=== PATIENT | male | born 1980 | race Caucasian/White ===

== ENCOUNTER 2020-05-03 16:12 | Inpatient (IN) | payer MEDICAID, OTHER ==
--- NOTE | 2020-05-03 16:38 | ED ---
General Adult HPI - General Source: patient, EMS, RN notes reviewed Mode of arrival: EMS Limitations: no limitations <Florentino Arcos - Last Filed: 05/03/20 16:36> <Don Servin - Last Filed: 05/04/20 02:09> - General Chief complaint: Psychiatric Symptoms Stated complaint: Mental Health Room 14 Time Seen by Provider: 05/03/20 16:24 - History of Present Illness Initial comments: Patient is a pleasant 39-year-old male presenting to the emergency department with depression and suicidal thoughts. Patient did have recent change in medications however symptoms certainly getting worse in the past couple of days. Patient has multiple stressors. Patient does have thoughts of cutting his left wrist. No homicidal thoughts. Patient was drinking alcohol today. No new physical complaints. Patient sometimes shapes when he closes his eyes otherwise no hallucinations. (Florentino Arcos) - Related Data Allergies Allergy/AdvReac Type Severity Reaction Status Date / Time No Known Allergies Allergy Verified 05/03/20 17:33 Review of Systems ROS Other: All systems not noted in ROS Statement are negative. Constitutional: Denies: fever Eyes: Denies: eye pain ENT: Denies: ear pain Respiratory: Denies: cough Cardiovascular: Denies: chest pain Endocrine: Denies: fatigue Gastrointestinal: Denies: abdominal pain Genitourinary: Denies: dysuria Musculoskeletal: Denies: back pain Skin: Denies: rash Psychiatric: Reports: depression, suicidal thoughts <Florentino Arcos - Last Filed: 05/03/20 16:36> ROS Other: All systems not noted in ROS Statement are negative. <Don Servin - Last Filed: 05/04/20 02:09> ROS Statement: Those systems with pertinent positive or pertinent negative responses have been documented in the HPI. Past Medical History Past Medical History: No Reported History History of Any Multi-Drug Resistant Organisms: None Reported Past Surgical History: No Surgical Hx Reported Past Psychological History: Depression Smoking Status: Vaper Past Alcohol Use History: Abuse Past Drug Use History: None Reported <Florentino Arcos - Last Filed: 05/03/20 16:36> General Exam Limitations: no limitations General appearance: alert, in no apparent distress Head exam: Present: normocephalic Eye exam: Present: normal appearance, EOMI, nystagmus Neck exam: Present: normal inspection Respiratory exam: Present: normal lung sounds bilaterally Cardiovascular Exam: Present: regular rate, normal rhythm GI/Abdominal exam: Present: soft. Absent: tenderness Extremities exam: Present: normal inspection Neurological exam: Present: alert Psychiatric exam: Present: depressed, suicidal ideation Skin exam: Present: normal color <Florentino Arcos - Last Filed: 05/03/20 16:36> Course Vital Signs 05/03/20 05/03/20 16:20 18:49 Temperature 97.9 F Pulse Rate 90 86 Respiratory 16 16 Rate Blood Pressure 120/92 140/91 O2 Sat by Pulse 95 97 Oximetry Medical Decision Making - Lab Data Lab Results 05/03/20 Range/Units 16:46 Urine Opiates Screen Not Detected (NotDetected) Ur Oxycodone Screen Not Detected (NotDetected) Urine Methadone Screen Not Detected (NotDetected) Ur Propoxyphene Screen Not Detected (NotDetected) Ur Barbiturates Screen Not Detected (NotDetected) U Tricyclic Antidepress Not Detected (NotDetected) Ur Phencyclidine Scrn Not Detected (NotDetected) Ur Amphetamines Screen Not Detected (NotDetected) U Methamphetamines Scrn Not Detected (NotDetected) U Benzodiazepines Scrn Detected H (NotDetected) Urine Cocaine Screen Not Detected (NotDetected) U Marijuana (THC) Screen Not Detected (NotDetected) Disposition <Florentino Arcos - Last Filed: 05/03/20 16:36> Is patient prescribed a controlled substance at d/c from ED?: No <Don Servin - Last Filed: 05/04/20 02:09> Clinical Impression: Mood disorder Disposition: ADMITTED IP TO THIS HOSP Condition: Fair
[2020-05-03 17:11] LABS: Amphetamine Screen,Urine Not Detected (NotDetected); Barbiturate Screen,Urine Not Detected (NotDetected); Benzodiazepines Screen,Urine Detected (NotDetected); Cocaine Screen,Urine Not Detected (NotDetected); Methadone Screen, Urine Not Detected (NotDetected); Opiate Screen,Urine Not Detected (NotDetected); Oxycodone Screen, Urine Not Detected (NotDetected); Phencyclidine Screen,Urine Not Detected (NotDetected); Tricyclic Antidepressant,Urine Not Detected (NotDetected); Urn Cannabinoid Scrn Not Detected (NotDetected)
[2020-05-03] MEDS ORDERED: LORazepam 2 MG/ML INJ IM STA (17:55)
[2020-05-03] MEDS ORDERED: LORazepam 2 MG/ML INJ IV STA (17:56)
[2020-05-04] MEDS ORDERED: MAGNESIUM HYDROXIDE 2,400 MG/10 ML CUP PO PRN (01:57)
[2020-05-04] MEDS ORDERED: MAG HYDROX/AL HYDROX/SIMETH 30 ML CUP PO PRN (01:57)
[2020-05-04] MEDS ORDERED: ZIPRASIDONE 20 MG VIAL IM PRN (01:57)
[2020-05-04] MEDS ORDERED: ACETAMINOPHEN TAB 325 MG TAB PO PRN (01:57)
[2020-05-04] MEDS ORDERED: haloperidoL 5 MG TAB PO SCH (02:03)
[2020-05-04 02:14] LABS: Appearance,Urine Clear (Clear); Bilirubin,Urine Negative (Negative); Blood,Urine Negative (Negative); Color,Urine Colorless; Glucose,Urine (UA) Negative (Negative); Ketones,Urine Negative (Negative); Leukocyte Esterase,Urine Negative (Negative); Nitrite,Urine Negative (Negative); Protein,Urine Negative (Negative); Specific Gravity,Urine 1.004 (1.001-1.035); Urobilinogen,Urine <2.0 mg/dL (<2.0)
[2020-05-04] MEDS: MIRTAZAPINE 15 MG TAB PO SCH ×2 (02:53→20:32)
[2020-05-04] MEDS: LORazepam 1 MG TAB PO SCH ×4 (02:53→21:16)
--- NOTE | 2020-05-04 05:56 | P.PN ---
Progress Note - Text Progress Note Date: 05/04/20 patient is sleeping at this time , unable to evaluate
[2020-05-04] MEDS: ESCITALOPRAM 20 MG TAB PO SCH (09:31)
[2020-05-04] MEDS: cloNIDine HCL 0.2 MG TAB PO SCH (09:31)
--- NOTE | 2020-05-04 11:20 | P.HP ---
Psychiatric H&P - . H&P Date: 05/04/20 History & Physical: Allergies Allergy/AdvReac Type Severity Reaction Status Date / Time No Known Allergies Allergy Verified 05/04/20 03:31 Vital Signs Temp 98.3 F 05/04/20 03:13 Pulse 74 05/04/20 03:13 Resp 20 05/04/20 03:13 BP 132/87 05/04/20 03:13 Pulse Ox 97 05/03/20 18:49 Intake & Output 05/03/20 05/04/20 05/04/20 18:59 06:59 18:59 Weight 90.718 kg 87.543 kg Laboratory Last Values Urine Color Colorless 05/03/20 16:46 Urine Appearance Clear (Clear) 05/03/20 16:46 Urine pH 6.0 (5.0-8.0) 05/03/20 16:46 Ur Specific [place] 1.004 (1.001-1.035) 05/03/20 16:46 Urine Protein Negative (Negative) 05/03/20 16:46 Urine Glucose (UA) Negative (Negative) 05/03/20 16:46 Urine Ketones Negative (Negative) 05/03/20 16:46 Urine Blood Negative (Negative) 05/03/20 16:46 Urine Nitrite Negative (Negative) 05/03/20 16:46 Urine Bilirubin Negative (Negative) 05/03/20 16:46 Urine Urobilinogen <2.0 mg/dL (<2.0) 05/03/20 16:46 Ur Leukocyte Esterase Negative (Negative) 05/03/20 16:46 Urine Opiates Screen Not Detected (NotDetected) 05/03/20 16:46 Ur Oxycodone Screen Not Detected (NotDetected) 05/03/20 16:46 Urine Methadone Screen Not Detected (NotDetected) 05/03/20 16:46 Ur Propoxyphene Screen Not Detected (NotDetected) 05/03/20 16:46 Ur Barbiturates Screen Not Detected (NotDetected) 05/03/20 16:46 U Tricyclic Antidepress Not Detected (NotDetected) 05/03/20 16:46 Ur Phencyclidine Scrn Not Detected (NotDetected) 05/03/20 16:46 Ur Amphetamines Screen Not Detected (NotDetected) 05/03/20 16:46 U Methamphetamines Scrn Not Detected (NotDetected) 05/03/20 16:46 U Benzodiazepines Scrn Detected (NotDetected) H 05/03/20 16:46 Urine Cocaine Screen Not Detected (NotDetected) 05/03/20 16:46 U Marijuana (THC) Screen Not Detected (NotDetected) 05/03/20 16:46 05/04/20 11:11 IDENTIFYING DATA: Patient is a 39 year old single, unemployed, male with significant history of hypertension, depression, and anxiety admitted for worsening depression in the context of the medication adjustment. HPI: Patient presented to the hospital on 05/03/2020 for worsening depression and suicidal thoughts in the context of a medication adjustment. Patient reports that he had his psychotropic medications adjusted on 04/27/2020 and he "felt like my medications weren't working." He reports that he has been feeling increasingly depressed as if he was not taking any medications. He reports that he did not want to get out of bed, did not want to leave the house, has been very anxious, and has been having a low mood. He also reported a desire to cut his left wrist. He reports no prior attempts at suicide. He also endorses that there have been increased stressors at home, in particular financial stressors. He reports that his medications were adjusted by his outpatient provider at [facility] who discontinued his Seroquel and Abilify and started him on Haldol instead. He was also previously prescribed trintellix and was switched to Lexapro and Remeron. In regards to bipolar symptoms, the patient is not endorsing any increased goal-directed behavior, increased energy, impulsivity, or grandiosity. He reports no auditory or visual hallucinations. He denies any significant history of trauma. He does endorse significant alcohol use. He reports that when he is feeling increasingly depressed, he is drinking up to a pint of hard liquor per day. He reports that when he is on his medications and stable, he would engage in alcohol use once a week up to a pint of liquor. He reports sleeping. He denies any marijuana use or any other drug use. He is also prescribed Ativan 1 mg 3 times daily. PAST PSYCHIATRIC HISTORY: Patient states that he first sought psychiatric help 20 years ago. He reports prior trials with Abilify, Trintellix, Seroquel. He reports that this is his fifth inpatient psychiatric hospitalization. He reports 2 prior hospitalizations for suicidal thoughts and 2 prior psychiatric hospitals in patient's for medication adjustments. He reports he was last inpatient at [facility] 1.5 months ago for suicidal ideation. He states that the stay was for 13 days. He is currently open with [facility] for outpatient psychiatric follow-up. Patient denies any history of suicide attempts in the past. PMH: Hypertension ALLERGIES: NKDA CHEMICAL DEPENDENCY HISTORY: as per HPI FAMILY PSYCHIATRIC/SUBSTANCE USE HISTORY: He reports that his mother is schizophrenic, his sister is bipolar, and that he has a grand uncle and aunt on his mother's side that completed suicide. He reports that his father's side has significant alcohol use disorder. SOCIAL HISTORY: Patient was born and raised in [place], [place]. He graduated with a degree in psychology. He currently lives in [place]. He lives by himself. He moved to the [place] area this past January. He currently has no source of income and is unemployed. Never . No children. MENTAL STATUS EXAM: General Appearance: Patient appears to be stated age is alert, directable, and attempts to cooperate. Patient appears to have good hygiene and grooming. Behavior: Patient is seated without any agitated behavior. Psychomotor activity is normal. Speech: Patient's speech is fluent and nonpressured. Mood/Affect: Patient reports their mood is depressed, affect is congruent and constricted. Suicidality/Homicidality: Patient denies having any homicidal ideation intent or plan. Denies any suicidal ideations intent or plan Perceptions: Patient denies any visual hallucinations and denies any auditory h allucinations Though content/process: There is no evidence of any delusional thought content and thought process is linear and goal-directed. Memory and concentration: AOX3, grossly intact for the purposes of this session. Can spell "WORLD" backwards Judgment and insight: Fair STRENGTHS/WEAKNESSES: strength is that patient is resilient. Weakness is that patient engages in significant alcohol use INTELLECT: average IMPRESSIONS: Major Depressive disorder, recurrent, moderate Anxiety Disorder, unspecified Alcohol Use Disorder PLAN: -Patient is admitted under voluntary status to MHU for stabilization of psychiatric symptoms and safety. Patient signed adult voluntary form and medication consent and is placed in patient's chart. -Medications : We will continue the patient's home medications. We will change Haldol to Zyprexa as Zyprexa is a second generation antipsychotic that has activity on the serotonin receptor. -Ativan and Geodon PRN for agitation/aggression -Patient was counselled on substance abuse and desired to cut back on use -Patient was informed of the risks, benefits and side effects of the medication and patient verbally consented to taking the medications. Patient signed med consent form and was placed in chart. -Internal Medicine consult to perform medical evaluation and physical. -NRT - nicotine patch -SW on board for discharge planning. Encourage patient to participate in groups to work on coping skills.
[2020-05-04 11:34] VITALS: RESP 16
[2020-05-04] MEDS ORDERED: OLANZapine 5 MG TAB PO SCH (21:00)
[2020-05-05 03:47] VITALS: TEMP 97.8
[2020-05-05 07:31] LABS: Basophils % (A) 1 %; Eosinophils # (A) 0.2 k/uL (0-0.7); Eosinophils % (A) 2 %; HCT 48.6 % (39.0-53.0); HGB 16.1 gm/dL (13.0-17.5); Lymphocytes # (A) 1.6 k/uL (1.0-4.8); Lymphocytes % (A) 22 %; MCH 32.5 pg (25.0-35.0); MCHC 33.1 g/dL (31.0-37.0); MCV 98.3 fL (80.0-100.0); Mean Platelet Volume 6.8; Monocytes # (A) 0.4 k/uL (0-1.0); Monocytes % (A) 5 %; Neutrophils # (A) 5.1 k/uL (1.3-7.7); Neutrophils % (A) 69 %; Platelet Count 202 k/uL (150-450); RBC 4.94 m/uL (4.30-5.90); RDW 13.6 % (11.5-15.5); WBC 7.4 k/uL (3.8-10.6)
[2020-05-05 07:50] LABS: Albumin 4.3 g/dL (3.5-5.0); Calcium 9.5 mg/dL (8.4-10.2); Potassium 4.3 mmol/L (3.5-5.1); Total Protein 7.6 g/dL (6.3-8.2)
[2020-05-05] MEDS: ESCITALOPRAM 20 MG TAB PO SCH (08:55)
[2020-05-05] MEDS: LORazepam 1 MG TAB PO SCH (08:55)
[2020-05-05] MEDS: cloNIDine HCL 0.2 MG TAB PO SCH (08:56)
--- NOTE | 2020-05-05 10:22 | P.DS ---
Providers Date of admission: 05/04/20 01:51 Expected date of discharge: 05/05/20 Attending physician: Gil Pederson MD Consults: 05/04/20 01:57 Consult Physician Routine Consulting Provider: Rupinder Schaefer Consult Reason/Comments: H&P for mental health admission Do you want consulting provider notified?: Yes Primary care physician: Stated None - Discharge Diagnosis(es) (1) Major depressive disorder, recurrent, moderate Current Visit: Yes Status: Acute Priority: High (2) Anxiety disorder, unspecified Current Visit: Yes Status: Acute Priority: Medium (3) Alcohol use disorder Current Visit: Yes Status: Chronic Priority: Medium Hospital Course: Admission HPI: Patient is a 39 year old single, unemployed, male with significant history of hypertension, depression, and anxiety admitted for worsening depression in the context of the medication adjustment. Patient presented to the hospital on 05/03/2020 for worsening depression and suicidal thoughts in the context of a medication adjustment. Patient reports that he had his psychot ropic medications adjusted on 04/27/2020 and he "felt like my medications weren't working." He reports that he has been feeling increasingly depressed as if he was not taking any medications. He reports that he did not want to get out of bed, did not want to leave the house, has been very anxious, and has been having a low mood. He also reported a desire to cut his left wrist. He reports no prior attempts at suicide. He also endorses that there have been increased stressors at home, in particular financial stressors. He reports that his medications were adjusted by his outpatient provider at [facility] who discontinued his Seroquel and Abilify and started him on Haldol instead. He was also previously prescribed trintellix and was switched to Lexapro and Remeron. In regards to bipolar symptoms, the patient is not endorsing any increased goal-directed behavior, increased energy, impulsivity, or grandiosity. He reports no auditory or visual hallucinations. He denies any significant history of trauma. He does endorse significant alcohol use. He reports that when he is feeling increasingly depressed, he is drinking up to a pint of hard liquor per day. He reports that when he is on his medications and stable, he would engage in alcohol use once a week up to a pint of liquor. He reports sleeping. He denies any marijuana use or any other drug use. He is also prescribed Ativan 1 mg 3 times daily. Hospital course: Upon admission to the unit patient was initially calm and pleasant. Patient wasr directable and agreeable to commence treatment. Patient got along well with other patients on the unit and followed unit protocol. Patient was compliant with the medications and denied any side effects throughout hospital course. Patient was started on his home medications but his Haldol was switched to Zyprexa as Zyprexa has action on the serotonin receptor so as to augment his antidepressant medication versus just Haldol acting on dopamine alone. Patient spoke of his stressors and engaged in therapy both group and individual. Patient was also seen by medical team for history and physical exam. Patient initially reported that he felt like the medications are not doing anything when he first brought himself to the hospital. During the initial psychiatric evaluation, the patient expressed that he was starting to feel better. The day following the initial psychiatric evaluation, the patient expressed that he felt like he was back to his normal self. Throughout the course of the hospitalization patient gradually improved with regards to mood and sleep and became future oriented with improved insight and judgment. On the day of discharge patient denied any suicidal or homicidal ideations intent or plan denied any auditory or visual hallucinations. Patient endorsed wanting to live for his health and his goals. He has plans to run multiple errands and obtain a part-time job. The patient denied any access to guns or weapons. Patient denied any paranoia and did not endorse any delusions. Patient does have a significant history of substance abuse however was counseled on abstaining from all substances including alcohol and marijuana. Patient was offered however declined inpatient substance-abuse rehab. Patient was also counseled on the medications and need for regular compliance and was encouraged to follow-up with their outpatient appointment for mental health and also for primary care. Prior to discharge a family meeting will be arranged by protective services social worker to answer any questions and ensure safety upon discharge. Mental status exam: General Appearance: Patient appears to be stated age is alert, pleasant, and cooperative. Patient is in no acute distress and has fair hygiene and grooming Behavior: Patient is calmly seated without any agitated behavior. Speech: Patient's speech is fluent and nonpressured. Mood/Affect: Patient reports their mood is "much better", affect is congruent and euthymic. Suicidality/Homicidality: Patient denies having any suicidal or homicidal ideation intent or plan. Perceptions: Patient denies any auditory or visual hallucinations. Though content/process: There is no evidence of any delusional thought content and thought process is linear and goal-directed. more future oriented Memory and concentration: AOX3, grossly intact for the purposes of this session. Can spell "WORLD" backwards correctly. Judgment and insight: Improved with guarded prognosis Impression: Major Depressive disorder, recurrent, moderate Anxiety Disorder, unspecified Alcohol Use Disorder Unspecified personality disorder Plan: -Continue with discharge today as patient has improved and stabilized psychiatrically and is not currently an imminent threat to himself and/or others. Patient will remain at chronically elevated risk for harm to self and/or others due to his alcohol abuse. -Continue medications: Lexapro 20 mg by mouth daily Ativan 1 mg by mouth 3 times a day Remeron 15 mg by mouth at bedtime Zyprexa 5 mg by mouth at bedtime Catapres 0.2 mg by mouth daily for blood pressure -Patient was counseled on the need for medication compliance and appropriate follow-up at mental health and also primary care for medical issues. Patient verbalized understanding and agreed. -Social work to arrange for and conduct family meeting to ensure safety upon discharge and answer any questions/concerns. Social work also to arrange for patients follow up appointments with [facility] for psychiatric care along with follow up with primary care provider. -Patient counseled on abstaining from recreational drugs and marijuana and alcohol. Was informed/educated on the adverse effects on their physical and mental health. Patient verbally agreed and understood. Patient was offered substance abuse treatment however declined at this time. -Patient was instructed to return to the hospital or seek immediate medical care if their psychiatric or medical symptoms do worsen or reoccur. -Psychoeducation and supportive therapy provided to patient. Risks and benefits of pharmacological treatment versus the risks and benefits of nontreatment weight and discussed. Informed consent discussion held. Common side effects of psychotropics discussed such as, but not limited to headache, GI disturbance, sexual dysfunction, movement disorders, sedation, and orthostatic hypotension. Life threatening and blackbox warnings of prescribed medications also discussed. Potential risks of operating a vehicle or heavy machinery discussed with patient at length. Advised on importance of compliance and a reliable and responsible manner. Patient advised to review FDA consumer labeling of all medications prior to taking. Patient verbalized understanding of potential risks, and agrees with current treatment plan. Patient advised to medically contact physician/emergency personnel if any acute changes in condition occur. Vital Signs Temp 97.8 F 05/05/20 03:46 Pulse 81 05/05/20 03:46 Resp 16 05/05/20 03:46 BP 137/86 05/05/20 03:46 Pulse Ox 97 05/03/20 18:49 Laboratory Results WBC 7.4 k/uL (3.8-10.6) 05/05/20 07:04 RBC 4.94 m/uL (4.30-5.90) 05/05/20 07:04 Hgb 16.1 gm/dL (13.0-17.5) 05/05/20 07:04 Hct 48.6 % (39.0-53.0) 05/05/20 07:04 MCV 98.3 fL (80.0-100.0) 05/05/20 07:04 MCH 32.5 pg (25.0-35.0) 05/05/20 07:04 MCHC 33.1 g/dL (31.0-37.0) 05/05/20 07:04 RDW 13.6 % (11.5-15.5) 05/05/20 07:04 Plt Count 202 k/uL (150-450) 05/05/20 07:04 Neutrophils % 69 % 05/05/20 07:04 Lymphocytes % 22 % 05/05/20 07:04 Monocytes % 5 % 05/05/20 07:04 Eosinophils % 2 % 05/05/20 07:04 Basophils % 1 % 05/05/20 07:04 Neutrophils # 5.1 k/uL (1.3-7.7) 05/05/20 07:04 Lymphocytes # 1.6 k/uL (1.0-4.8) 05/05/20 07:04 Monocytes # 0.4 k/uL (0-1.0) 05/05/20 07:04 Eosinophils # 0.2 k/uL (0-0.7) 05/05/20 07:04 Basophils # 0.0 k/uL (0-0.2) 05/05/20 07:04 Sodium 137 mmol/L (137-145) 05/05/20 07:04 Potassium 4.3 mmol/L (3.5-5.1) 05/05/20 07:04 Chloride 102 mmol/L (98-107) 05/05/20 07:04 Carbon Dioxide 26 mmol/L (22-30) 05/05/20 07:04 Anion Gap 9 mmol/L 05/05/20 07:04 BUN 16 mg/dL (9-20) 05/05/20 07:04 Creatinine 1.20 mg/dL (0.66-1.25) 05/05/20 07:04 Est GFR (CKD-EPI)AfAm 87 (>60 ml/min/1.73 sqM) 05/05/20 07:04 Est GFR (CKD-EPI)NonAf 75 (>60 ml/min/1.73 sqM) 05/05/20 07:04 Glucose 101 mg/dL (74-99) H 05/05/20 07:04 Calcium 9.5 mg/dL (8.4-10.2) 05/05/20 07:04 Total Bilirubin 1.0 mg/dL (0.2-1.3) 05/05/20 07:04 AST 27 U/L (17-59) 05/05/20 07:04 ALT 26 U/L (4-49) 05/05/20 07:04 Alkaline Phosphatase 66 U/L (38-126) 05/05/20 07:04 Total Protein 7.6 g/dL (6.3-8.2) 05/05/20 07:04 Albumin 4.3 g/dL (3.5-5.0) 05/05/20 07:04 Triglycerides 777 mg/dL (<150) H 05/05/20 07:04 Cholesterol 263 mg/dL (<200) H 05/05/20 07:04 LDL Cholesterol, Calc mg/dL (0-99) 05/05/20 07:04 HDL Cholesterol 55 mg/dL (40-60) 05/05/20 07:04 TSH 0.966 mIU/L (0.465-4.680) 05/05/20 07:04 Urine Color Colorless 05/03/20 16:46 Urine Appearance Clear (Clear) 05/03/20 16:46 Urine pH 6.0 (5.0-8.0) 05/03/20 16:46 Ur Specific [place] 1.004 (1.001-1.035) 05/03/20 16:46 Urine Protein Negative (Negative) 05/03/20 16:46 Urine Glucose (UA) Negative (Negative) 05/03/20 16:46 Urine Ketones Negative (Negative) 05/03/20 16:46 Urine Blood Negative (Negative) 05/03/20 16:46 Urine Nitrite Negative (Negative) 05/03/20 16:46 Urine Bilirubin Negative (Negative) 05/03/20 16:46 Urine Urobilinogen <2.0 mg/dL (<2.0) 05/03/20 16:46 Ur Leukocyte Esterase Negative (Negative) 05/03/20 16:46 Urine Opiates Screen Not Detected (NotDetected) 05/03/20 16:46 Ur Oxycodone Screen Not Detected (NotDetected) 05/03/20 16:46 Urine Methadone Screen Not Detected (NotDetected) 05/03/20 16:46 Ur Propoxyphene Screen Not Detected (NotDetected) 05/03/20 16:46 Ur Barbiturates Screen Not Detected (NotDetected) 05/03/20 16:46 U Tricyclic Antidepress Not Detected (NotDetected) 05/03/20 16:46 Ur Phencyclidine Scrn Not Detected (NotDetected) 05/03/20 16:46 Ur Amphetamines Screen Not Detected (NotDetected) 05/03/20 16:46 U Methamphetamines Scrn Not Detected (NotDetected) 05/03/20 16:46 U Benzodiazepines Scrn Detected (NotDetected) H 05/03/20 16:46 Urine Cocaine Screen Not Detected (NotDetected) 05/03/20 16:46 U Marijuana (THC) Screen Not Detected (NotDetected) 05/03/20 16:46 Allergies Allergy/AdvReac Type Severity Reaction Status Date / Time No Known Allergies Allergy Verified 05/04/20 03:31 Patient Condition at Discharge: Stable Plan - Discharge Summary Discharge Rx Participant: Yes New Discharge Prescriptions: New OLANZapine [ZyPREXA] 5 mg PO HS 30 Days tab Continue cloNIDine HCL [Catapres] 0.2 mg PO DAILY LORazepam [Ativan] 1 mg PO TID Escitalopram [Lexapro] 20 mg PO DAILY 30 Days tab Mirtazapine [Remeron] 15 mg PO HS 30 Days tab Discontinued haloperidoL [Haldol] 5 mg PO HS Discharge Medication List LORazepam [Ativan] 1 mg PO TID 05/03/20 [History] cloNIDine HCL [Catapres] 0.2 mg PO DAILY 05/03/20 [History] Escitalopram [Lexapro] 20 mg PO DAILY 30 Days tab 05/05/20 [Rx] Mirtazapine [Remeron] 15 mg PO HS 30 Days tab 05/05/20 [Rx] OLANZapine [ZyPREXA] 5 mg PO HS 30 Days tab 05/05/20 [Rx] Follow up Appointment(s)/Referral(s): [facility] [Outside] - 05/09/20 1:30 pm (05-09-20 @ 1:30 with MECHANIST Yen Gutierrez at [facility] office 05-09-20 @ 3:00 with Ramon Arcos and Temo Costello at [facility] office) None,Stated [Primary Care Provider] - 1-2 days Activity/Diet/Wound Care/Special Instructions: Activity and diet as tolerated. Avoid the use of street drugs and alcohol. Take all medications as prescribed. When you are in need of refills on your medications please contact your medical provider and/or outpatient psychiatrist to have this done. Please go to scheduled outpatient appointment for aftercare treatment. If symptoms return or become worse, call the crisis line at and/or go to the nearest emergency room for evaluation. Discharge Disposition: HOME SELF-CARE
[2020-05-05 10:53] VITALS: BP 154/84; PULSE 89
[2020-05-05 15:12] LABS: Hemoglobin A1C 4.6 % (4.0-6.0)
== END 2020-05-05 12:07 | disposition home or self-care (01) | DRG 885 ==
LOC: EC 16:12 → 3MHU 05-04 01:51
PROVIDERS: ADMIT Psychiatry & Neurology Psychiatry; ATTEND Psychiatry & Neurology Psychiatry
DX: F33.1 Major depressive disorder, recurrent, moderate (principal); R45.851 Suicidal ideations; F60.9 Personality disorder, unspecified; F41.9 Anxiety disorder, unspecified; F10.10 Alcohol abuse, uncomplicated; I10 Essential (primary) hypertension; Z79.899 Other long term (current) drug therapy
CPT/HCPCS: 80053; 80061; 80306; 81003; 82075; 83036; 84443; 85025; 96374; 99285

== ENCOUNTER 2022-11-25 22:12 | Observation (INO) | payer OTHER ==
[2022-11-25] MEDS ORDERED: MORPHINE SULFATE 4 MG/ML SYRINGE IVP STA (23:07)
[2022-11-25] MEDS ORDERED: SODIUM CHLORIDE 0.9% 1,000 ML IV ONE (23:09)
[2022-11-25 23:18] LABS: Basophils % (A) 0 %; Eosinophils % (A) 0 %; HCT 52.2 % (39.0-53.0); Lymphocytes # (A) 2.1 k/uL (1.0-4.8); Lymphocytes % (A) 22 %; MCH 30.9 pg (25.0-35.0); MCHC 34.6 g/dL (31.0-37.0); MCV 89.3 fL (80.0-100.0); Mean Platelet Volume 7.5; Monocytes # (A) 0.7 k/uL (0-1.0); Monocytes % (A) 7 %; Neutrophils # (A) 6.6 k/uL (1.3-7.7); Neutrophils % (A) 69 %; Platelet Count 381 k/uL (150-450); RBC 5.84 m/uL (4.30-5.90); RDW 13.1 % (11.5-15.5); WBC 9.7 k/uL (3.8-10.6)
--- NOTE | 2022-11-25 23:24 | ED ---
Chest Pain HPI - General Chief Complaint: Chest Pain Stated Complaint: CHEST PAIN Time Seen by Provider: 11/25/22 22:31 Source: patient Mode of arrival: EMS Limitations: no limitations - History of Present Illness Initial Comments: 42-year-old male with past history of alcohol abuse who presents to the emergency department with reported chest pain. Reports that he has had left- sided chest wall pain graded 8 out of 10 for the past 4 days. Also reports that he feels extremely short of breath. He denies previous history of cardiac disease. Does admit to a history of hypertension however does not take any medications for it. He does not follow with a doctor. He denies fevers, chills or cough. Patient extremely diaphoretic. EMS did provide the patient with aspirin and sublingual nitro for which she states helped his symptoms. No history of irregular heart rhythms. Does admit to occasional alcohol use and does admit to drinking today. No calf pain or swelling. No history of DVT or PE. No other alleviating, precipitating or modifying factors - Related Data Home Medications Medication Instructions Recorded Confirmed LORazepam [Ativan] 1 mg PO TID 05/03/20 05/03/20 cloNIDine HCL [Catapres] 0.2 mg PO DAILY 05/03/20 05/03/20 Previous Rx's Medication Instructions Recorded Escitalopram [Lexapro] 20 mg PO DAILY 30 Days tab 05/05/20 Mirtazapine [Remeron] 15 mg PO HS 30 Days tab 05/05/20 OLANZapine [ZyPREXA] 5 mg PO HS 30 Days tab 05/05/20 HYDROcodone/APAP 5-325MG [[place] 1 tab PO Q4HR PRN 3 Days #18 tab 08/14/22 5-325] Ondansetron Odt [Zofran ODT] 4 mg PO Q8HR PRN #10 tab 08/14/22 Tamsulosin [Flomax] 0.4 mg PO DAILY #14 cap 08/14/22 Allergies Allergy/AdvReac Type Severity Reaction Status Date / Time No Known Allergies Allergy Verified 11/25/22 22:27 Review of Systems ROS Statement: Those systems with pertinent positive or pertinent negative responses have been documented in the HPI. ROS Other: All systems not noted in ROS Statement are negative. Past Medical History Past Medical History: No Reported History, Seizure Disorder Additional Past Medical History / Comment(s): Pt admits to decreasing ETOH x 2 mos. from QD to 1xweek a pint. Admits hx of withdrawal seizures. History of Any Multi-Drug Resistant Organisms: None Reported Past Surgical History: No Surgical Hx Reported Additional Past Surgical History / Comment(s): Hx of tori. hand surgery. Past Psychological History: Anxiety, Depression, Panic Disorder Smoking Status: Former smoker, Vaper Past Alcohol Use History: Abuse, Daily Past Drug Use History: None Reported General Exam Limitations: no limitations Course Vital Signs 11/25/22 22:15 Temperature 98.5 F Pulse Rate 118 H Respiratory 16 Rate Blood Pressure 136/85 O2 Sat by Pulse 96 Oximetry Chest Pain MDM - MDM Was pt. sent in by a medical professional or institution (, PA, FARM TECHNICIAN, urgent care, hospital, or half-way...) When possible be specific @ -[No] Did you speak to anyone other than the patient for history (EMS, parent, family, police, friend...)? What history was obtained from this source @ -[No] Did you review nursing and triage notes (agree or disagree)? Why? @ -[I reviewed and agree with nursing and triage notes] Were old charts reviewed (outside hosp., previous admission, EMS record, old EKG, old radiological studies, urgent care reports/EKG's, half-way records)? Report findings @ -[No old charts were reviewed] Differential Diagnosis (chest pain, altered mental status, abdominal pain women, abdominal pain men, vaginal bleeding, weakness, fever, dyspnea, syncope, headache, dizziness, GI bleed, back pain, seizure, CVA, palpatations, mental health, musculoskeletal)? @ -[not applicable] EKG interpreted by me (3pts min.). @ -EKG interpreted by me demonstrates sinus tachycardia with a rate of 118. RI interval 137. Care is 83. QTC 367. Mild ST depression V3 through V6, [address] and [address]VF. No acute ST segment elevations X-rays interpreted by me (1pt min.). @ -[None done] CT interpreted by me (1pt min.). @ -[None done] U/S interpreted by me (1pt. min.). @ -[None done] What testing was considered but not performed or refused? (CT, X-rays, U/S, labs)? Why? @ -[None] What meds were considered but not given or refused? Why? @ -[None] Did you discuss the management of the patient with other professionals (professionals i.e. , PA, FARM TECHNICIAN, lab, RT, psych nurse, social media marketer, ordnance engineering technician, teacher, bank secrecy act officer, piano case and bench assembler)? Give summary @ -[No] Was smoking cessation discussed for >3mins.? @ -[No] Was critical care preformed (if so, how long)? @ -[No] Were there social determinants of health that impacted care today? How? (H omelessness, low income, unemployed, alcoholism, drug addiction, transportation, low edu. Level, literacy, decrease access to med. care, skilled nursing, rehab)? @ -[No] Was there de-escalation of care discussed even if they declined (Discuss DNR or withdrawal of care, Hospice)? DNR status @ -[No] What co-morbidities impacted this encounter? (DM, HTN, Smoking, COPD, CAD, Cancer, CVA, ARF, Chemo, Hep., AIDS, mental health diagnosis, sleep apnea, morbid obesity)? @ -[None] Was patient admitted / discharged? Hospital course, mention meds given and route, prescriptions, significant lab abnormalities, going to OR and other pertinent info. @ -Upon arrival patient was placed into room 26. A thorough history and physical exam is performed. Patient hooked to continuous pulse ox and cardiac monitoring. 12-lead EKG is obtained which demonstrates a sinus tachycardia. Patient significantly diaphoretic. IV is established and the patient is given a liter bolus of normal saline, 4 mg of Zofran, 1 mg of Ativan. Laboratory studies are reviewed and demonstrate a potassium of 2.9. Alcohol is 222. Potassium is replaced. First troponin is negative. Chest x-ray demonstrates no acute process. Did recommend admission for which the patient was agreeable. Spoke with terri from [facility] who agreed to admit the patient. He is placed on Cinm protocol Undiagnosed new problem with uncertain prognosis? @ -[No] Drug Therapy requiring intensive monitoring for toxicity (Heparin, Nitro, Insulin, Cardizem)? @ -[No] Were any procedures done? @ -[No] Diagnosis/symptom? @ -[default] Acute, or Chronic, or Acute on Chronic? @ -[default] Uncomplicated (without systemic symptoms) or Complicated (systemic symptoms)? @ -[default] Side effects of treatment? @ -[No] Exacerbation, Progression, or Severe Exacerbation? @ -[No] Poses a threat to life or bodily function? How? (Chest pain, USA, VT, pneumonia, PE, COPD, DKA, ARF, appy, cholecystitis, CVA, Diverticulitis, Homicidal, Suicidal, threat to staff... and all critical care pts) @ -[No] Disposition Clinical Impression: Alcohol use disorder, Chest pain, Tachycardia, Hyperkalemia Disposition: ADMITTED IP TO THIS [facility] Condition: Stable Is patient prescribed a controlled substance at d/c from ED?: No Time of Disposition: 01:17 Decision to Admit Reason: Admit from EC Decision Date: 11/26/22 Decision Time: 01:17
[2022-11-25] MEDS ORDERED: ONDANSETRON 4 MG/2 ML VIAL IVP STA (23:26)
[2022-11-25 23:36] LABS: ALT 98 U/L (4-49); AST 108 U/L (17-59); African American GFR (CKD) >90 (>60 ml/min/1.73 sqM); Albumin 4.4 g/dL (3.5-5.0); Alkaline Phosphatase 81 U/L (38-126); Anion Gap 20 mmol/L; Blood Urea Nitrogen 10 mg/dL (9-20); Calcium 9.1 mg/dL (8.4-10.2); Carbon Dioxide 23 mmol/L (22-30); Chloride 97 mmol/L (98-107); Glucose 173 mg/dL (74-99); Magnesium 1.7 mg/dL (1.6-2.3); Non-African American GFR(CKD) 89 (>60 ml/min/1.73 sqM); Potassium 2.9 mmol/L (3.5-5.1); Sodium 140 mmol/L (137-145); Total Bilirubin 0.7 mg/dL (0.2-1.3); Total Protein 7.2 g/dL (6.3-8.2)
[2022-11-25 23:46] LABS: Alcohol 222 mg/dL; INR 1.1 (<1.2); Prothrombin Time 11.2 sec (9.0-12.0)
[2022-11-25] MEDS ORDERED: POTASSIUM CHLORIDE 20 MEQ in WATER FOR INJECTION 1 100ML.BAG IVPB STA (23:55)
[2022-11-25] MEDS ORDERED: POTASSIUM CHLORIDE ER 20 MEQ TAB.ER PO STA (23:55)
[2022-11-26 00:01] LABS: Partial Thromboplastin Time 21.6 sec (22.0-30.0)
[2022-11-26] MEDS ORDERED: LORazepam 2 MG/ML INJ IV STA (00:05)
[2022-11-26] MEDS ORDERED: ONDANSETRON 4 MG/2 ML VIAL IVP PRN (01:17)
[2022-11-26] MEDS ORDERED: NALOXONE 0.4 MG/ML 1 ML VIAL IV PRN (01:17)
[2022-11-26] MEDS ORDERED: LORazepam 1 MG TAB PO PRN ×5 (01:22→12:00)
[2022-11-26] MEDS ORDERED: THIAMINE 100 MG/ML 2 ML VIAL IM STA (01:22)
[2022-11-26] MEDS ORDERED: LORazepam 0.5 MG TAB PO PRN (01:22)
--- NOTE | 2022-11-26 01:23 | XR ---
EXAM: XR Chest, 2 Views CLINICAL HISTORY: ITS.REASON XR Reason: Cough/pain TECHNIQUE: Frontal and lateral views of the chest. COMPARISON: No relevant prior studies available. FINDINGS: Lungs: Slight right basilar opacity. Pleural space: No effusion. Heart: No cardiomegaly. Bones/joints: No acute findings. IMPRESSION: Slight right basilar opacity.
[2022-11-26] MEDS: SODIUM CHLORIDE 0.9% 1,000 ML IV SCH ×3 (01:49→17:13)
[2022-11-26 09:34] VITALS: TEMP 97.7
[2022-11-26] MEDS: POTASSIUM CHLORIDE ER 20 MEQ TAB.ER PO SCH ×4 (13:21→20:10)
[2022-11-26] MEDS ORDERED: SERTRALINE 50 MG TAB PO SCH (13:30)
--- NOTE | 2022-11-26 13:39 | P.CN ---
Psychiatric Consult - . Consult date: 11/26/22 Consult:: 11/26/22 12:38 IDENTIFYING DATA: This patient is a 42-year-old male, currently staying in a hotel room, single and is unemployed. REASON FOR REFERRAL: Psychiatry was consulted for "bipolar" HISTORY OF PRESENT ILLNESS: The patient presented to the hospital to the ER last thing complaining of chest pain and shortness of breath and he was diaphoretic. Patient was admitted under observation and was seen today on the ER. Patient blood alcohol level was 222 on admission. Troponins were checked and were negative 3. Patient's AST was 108 and ALT was 98. Patient was seen lying in bed today was group of 3 to administrative underwriter. He states that he has been having testing shortness of breath for the past few days and came to the hospital. He states that he has been stressed recently about trying to find a new place to live and also finances. He claims that he was feeling mildly depressed before coming into the hospital states that he is a bit better now. He claims that he does have a diagnosis of "bipolar type II" and states that he does have hypomanic episodes at times. He states that these usually come with elevated mood and spending money. He claims that he stopped taking his meds about 6 months ago for unknown reasons. He states that he sleeps about 3-4 hours a night. She claims that his appetite is fair at this time. At this time he is fairly future oriented and denying any suicidal thoughts intent or plan. At this time patient denies any homicidal ideations, intent or plan. Patient denies any auditory, visual hallucinations and denies any paranoia or delusions. Patients admits to using claims that he uses alcohol occasionally however states that he drank heavily before coming into the hospital. He states that he does not have any withdrawal symptoms at this time. Denies any other recreational drug use. Patient states that he has not followed up with [facility] in several months and was seeing the nurse practitioner and is willing to go back to see her to continue on with treatment and medications. PAST PSYCHIATRIC HISTORY: Patient has a a history of bipolar disorder type II. Patient is not currently on any psychiatric medications for the past 6 months or so however used to be on several different medications including Lexapro Ativan Remeron Zyprexa and several others. Patient was last psychiatrically hospitalized on the mental health unit in April 2020. Patient denies any psychiatric outpatient follow-up however does state that he is to follow up nurse practitioner at [facility] and is willing to go back. Patient denies any history of suicide attempts in the past. Past Medical History: No Reported History, Seizure Disorder Additional Past Medical History / Comment(s): Pt admits to decreasing ETOH x 2 mos. from QD to 1xweek a pint. Admits hx of withdrawal seizures. History of Any Multi-Drug Resistant Organisms: None Reported Past Surgical History: No Surgical Hx Reported Additional Past Surgical History / Comment(s): Hx of tori. hand surgery. Past Psychological History: Anxiety, Depression, Panic Disorder Smoking Status: Former smoker, Vaper Past Alcohol Use History: Abuse, Daily Past Drug Use History: None Reported ALLERGIES: as per EMR. CHEMICAL DEPENDENCY HISTORY: as per HPI. FAMILY PSYCHIATRIC/SUBSTANCE USE HISTORY: He claims that his mother had bipolar he suspects SOCIAL HISTORY: Patient was born and raised in [place]. He states that he completed high school and some college. He states that he worked at [employer] previously and is currently unemployed. He denies having any kids, he currently has been sitting in a hotel room, he is single. No legal history. MENTAL STATUS EXAM: General Appearance: Patient appears to be balding, stated age is alert, directable and cooperative. Patient appears to have fair hygiene and grooming wearing hospital gown with fair eye contact. Behavior: Patient is calmly lying in bed without any agitated behavior. Attempts to cooperate. Speech: Patient's speech is fluent and nonpressured. Continue Mood/Affect: Patient reports their mood is "better now", affect is congruent Suicidality/Homicidality: Patient denies having any suicidal or homicidal ideation intent or plan. Perceptions: Patient denies any visual hallucinations and denies any auditory hallucinations Though content/process: There is no evidence of any delusional thought content and thought process is linear and goal-directed. future oriented and wants help from [facility] Memory and concentration: AOX3, grossly intact for the purposes of this session. Can spell "WORLD" backwards Judgment and insight: limited IMPRESSIONS: Bipolar disorder unspecified Alcohol abuse PLAN: -At this time patient DOES NOT meet criteria for inpatient psychiatric admission as patient is denying any SI or HI and not endorsing any psychotic sx or hallucinations. patient is future oriented and denies any access to guns or weapons and wants to get started on medications and get reconnected with [facility]. -Would recommend the following medication changes/additions: zoloft 50 mg daily for mood/anxiety, remeron 15 mg qhs for insomnia/mood, lithium 300 mg bid for mood stabilization. -CIWA protocol with PRN Ativan for alcohol withdrawal. Continue to monitor vital signs. -making line worker to provide patient with outpatient mental health/psychiatry resources for appropriate follow up upon discharge. Also administrative underwriter spoke with EPS nurse to coordinate/contact mobile crisis to help patient get reconnected to [facility] services prior to d/c -Paper Rewinder Operator spoke with patient about substance abuse and the harmful effects on medical and mental health, patient verbally understood and agreed. -making line worker to provide patient substance use treatment resources including AA/NA meetings in the community. -making line worker to provide patient with access line number to call for inpatient substance rehab -Communicated plan to patient's hospitalist about the plan -Psychiatry will sign off at this time -Please contact with any questions. 11/26/22 13:30
--- NOTE | 2022-11-26 14:36 | P.HPIM ---
History of Present Illness 42-year-old male admitted with the precordial chest pain pressure-like sensation radiating to the left arm along with shortness of breath lightheadedness and diaphoresis. Patient does have anxiety and bipolar disorder stopped taking his lithium. Patient's EKG is essentially within normal limits troponins are negative patient was evaluated cardiology recommended echocardiogram if that's normal patient can be discharged from cardiology perspective. I consulted psychiatry will evaluate the patient and they are recommending Zoloft Remeron and lithium. Patient did not meet criteria for inpatient hospitalization. Patient doesn't drink alcohol on a daily basis anymore with alcohol but started drinking last night patient denied that he will have any withdrawals. Patient does have mildly elevated liver enzymes secondary to alcohol use. REVIEW OF SYSTEMS: CONSTITUTIONAL: No fever, no malaise, no fatigue. HEENT: No recent visual problems or hearing problems. Denied any sore throat. CARDIOVASCULAR: No orthopnea, PND, no palpitations, no syncope. PULMONARY: No shortness of breath, no cough, no hemoptysis. GASTROINTESTINAL: No diarrhea, no nausea, no vomiting, no abdominal pain. NEUROLOGICAL: No headaches, no weakness, no numbness. HEMATOLOGICAL: Denies any bleeding or petechiae. GENITOURINARY: Denies any burning micturition, frequency, or urgency. MUSCULOSKELETAL/RHEUMATOLOGICAL: Denies any joint pain, swelling, or any muscle pain. ENDOCRINE: Denies any polyuria or polydipsia. The rest of the 14-point review of systems is negative. PHYSICAL EXAMINATION: GENERAL: The patient is alert and oriented x3, not in any acute distress. Well developed, well nourished. HEENT: Pupils are round and equally reacting to light. EOMI. No scleral icterus. No conjunctival pallor. Normocephalic, atraumatic. No pharyngeal erythema. No thyromegaly. CARDIOVASCULAR: S1 and S2 present. No murmurs, rubs, or gallops. PULMONARY: Chest is clear to auscultation, no wheezing or crackles. ABDOMEN: Soft, nontender, nondistended, normoactive bowel sounds. No palpable organomegaly. MUSCULOSKELETAL: No joint swelling or deformity. EXTREMITIES: No cyanosis, clubbing, or pedal edema. NEUROLOGICAL: Gross neurological examination did not reveal any focal deficits. SKIN: No rashes. Assessment and plan -Chest pain, symptoms of anxiety: Rule out acute coronary syndromes. Echocardiac exam is negative patient will be discharged patient's symptomatology is probably secondary to episodes of anxiety and not taking lithium for his bipolar disorder -Bipolar disorder, anxiety disorder -Rule out pulmonary embolism -Severe hypokalemia potassium replaced before discharge Patient will be discharged today if cleared by cardiology Past Medical History Past Medical History: No Reported History, Seizure Disorder Additional Past Medical History / Comment(s): Pt admits to decreasing ETOH x 2 mos. from QD to 1xweek a pint. Admits hx of withdrawal seizures. History of Any Multi-Drug Resistant Organisms: None Reported Past Surgical History: No Surgical Hx Reported Additional Past Surgical History / Comment(s): Hx of tori. hand surgery. Past Anesthesia/Blood Transfusion Reactions: No Reported Reaction Past Psychological History: Anxiety, Depression, Panic Disorder Smoking Status: Former smoker, Vaper Past Alcohol Use History: Abuse, Daily Past Drug Use History: None Reported Medications and Allergies Home Medications Medication Instructions Recorded Confirmed Type No Known Home Medications 11/26/22 11/26/22 History Allergies Allergy/AdvReac Type Severity Reaction Status Date / Time No Known Allergies Allergy Verified 11/26/22 07:50 Physical Exam Vitals: Vital Signs Temp Pulse Resp BP Pulse Ox 11/26/22 09:34 97.7 F 11/26/22 06:05 98 16 114/68 94 L 11/26/22 04:00 83 16 128/68 97 11/25/22 22:15 98.5 F 118 H 16 136/85 96 Intake and Output 11/25/22 11/26/22 11/26/22 22:59 06:59 14:59 Other: Weight 81.647 kg 81.647 kg Results CBC & Chem 7: 11/25/22 22:30 11/25/22 22:30 Labs: Abnormal Lab Results - Last 24 Hours (Table) 11/25/22 11/25/22 11/25/22 Range/Units 22:30 22:30 22:30 Hgb 18.0 H (13.0-17.5) gm/dL APTT 21.6 L (22.0-30.0) sec Potassium 2.9 L (3.5-5.1) mmol/L Chloride 97 L (98-107) mmol/L Glucose 173 H (74-99) mg/dL AST 108 H (17-59) U/L ALT 98 H (4-49) U/L Serum Alcohol 222 H* mg/dL Thrombosis Risk Factor Assmnt - Choose All That Apply Any of the Below Risk Factors Present?: No
--- NOTE | 2022-11-26 14:41 | P.DS ---
Providers Date of admission: 11/26/22 01:17 Attending physician: Lavon Mckinley Consults: 11/26/22 01:17 Consult Physician Urgent Consulting Provider: [facility] Consult Reason/Comments: acute chest pain, sinus tachycardia Do you want consulting provider notified?: Yes 11/26/22 12:20 Consult Physician Urgent Consulting Provider: Kj Bridges Reason/Comments: Bipolar Do you want consulting provider notified?: Yes Primary care physician: Stated None Hospital Course: Refer to my history of present illness for further details Patient Condition at Discharge: Stable Plan - Discharge Summary New Discharge Prescriptions: New Mirtazapine [Remeron] 15 mg PO HS #30 tab Sertraline [Zoloft] 50 mg PO DAILY #30 tab [place] Carbonate 300 mg PO BID #60 capsule Discharge Medication List [place] Carbon[place] 300 mg PO BID #60 capsule 11/26/22 [Rx] Mirtazapine [Remeron] 15 mg PO HS #30 tab 11/26/22 [Rx] Sertraline [Zoloft] 50 mg PO DAILY #30 tab 11/26/22 [Rx] Follow up Appointment(s)/Referral(s): Maisha Shaver MD [REFERRING] - 1 Week None,Stated [Primary Care Provider] - 1-2 days [facility] [NON-STAFF] - 1 Week Oliverio Mcgarry MD [STAFF PHYSICIAN] - 1 Week Discharge Disposition: HOME SELF-CARE
[2022-11-26] MEDS: LITHIUM CARBONATE 300 MG CAP PO SCH ×2 (15:38→20:10)
[2022-11-26] MEDS ORDERED: PANTOPRAZOLE 40 MG TABLET PO SCH (17:30)
[2022-11-26 17:51] VITALS: RESP 18
[2022-11-26 20:30] VITALS: BP 153/90; PULSE 89
[2022-11-26] MEDS ORDERED: MIRTAZAPINE 15 MG TAB PO SCH (21:00)
--- NOTE | 2022-11-26 21:08 | CONS ---
CONSULTATION HISTORY OF PRESENT ILLNESS: This is a 42-year-old gentleman with a history of EtOH abuse, who presented to hospital with alcohol intoxication. His EtOH level was 222, and complained of chest discomfort that was mild intensity, pericardial, unrelated to exertion, and not associated with diaphoresis without definite radiation to neck, arm, or back. His EKG revealed sinus rhythm with nonspecific ST-T wave changes. Three sets of cardiac enzymes are negative. His hemoglobin is 18. The patient has not had prior cardiac workup, and there is no prior history of coronary artery disease or congestive heart failure. Most of his clinical symptomatology seems to be related to EtOH intoxication. PAST MEDICAL HISTORY: Negative for hypertension, diabetes, or dyslipidemia. MEDICATIONS: None. ALLERGIES: None. FAMILY HISTORY: Negative for premature coronary artery disease. SOCIAL HISTORY: Significant for EtOH abuse and smoking. REVIEW OF SYSTEMS: 14 out of 14 review of systems has been performed. Pertinents are as documented. PHYSICAL EXAMINATION: GENERAL: Comfortable at rest. VITAL SIGNS: Stable. NECK: There is no jugular venous distention. Carotid upstroke is normal. There is no bruit. CHEST: Reveals good air entry bilaterally. HEART: Reveals first and second heart sounds. No gallop. No murmur. No rub. ABDOMEN: Soft and nontender. EXTREMITIES: Did not reveal any edema. Peripheral pulses are felt. ELECTRIC METER TESTER HELPER: Did not reveal focal neurological deficits. LABORATORY DATA: Show that 3 sets of troponins are negative. BNP is normal. EtOH level is elevated. ASSESSMENT: 1. Pericardial chest pain. 2. EtOH intoxication. PLAN: The patient's chest discomfort is sharp, atypical, probably related to EtOH abuse and intoxication. I will obtain a 2D echo today and schedule him for a stress echo tomorrow morning. We need to get him up, ambulate him, and make sure that he is safe to walk on a treadmill. MMODL / IJN: [id number] /
[2022-11-27] MEDS ORDERED: THIAMINE 100 MG TAB PO SCH (09:00)
--- NOTE | 2022-11-27 13:25 | P.PN ---
Progress Note - Text Results of echocardiogram are not available yet
== END 2022-11-26 20:29 | disposition home or self-care (01) ==
LOC: EC 22:12 → 6NMEDSUR 11-26 01:17
PROVIDERS: ADMIT Hospitalist; ATTEND Hospitalist
DX: R07.89 Other chest pain (principal); F10.129 Alcohol abuse with intoxication, unspecified; F31.9 Bipolar disorder, unspecified; Y90.7 Blood alcohol level of 200-239 mg/100 ml; E87.6 Hypokalemia; R00.0 Tachycardia, unspecified; R06.02 Shortness of breath; R61 Generalized hyperhidrosis; I10 Essential (primary) hypertension; G40.909 Epilepsy, unspecified, not intractable, without status epilepticus; F41.9 Anxiety disorder, unspecified; R74.8 Abnormal levels of other serum enzymes; F41.0 Panic disorder [episodic paroxysmal anxiety]; Z79.899 Other long term (current) drug therapy; Z98.890 Other specified postprocedural states; Z87.891 Personal history of nicotine dependence
CPT/HCPCS: 96361 ×2; 96365; 96366; 96372; 96375 ×2; 99285; 36415; 93005; 85379; 80053; 83735; 84484 ×2; 85025; 85610; 85730; 80320; 71046; G0378; J2060; J2270; J3411; J3480; J2405

== ENCOUNTER 2023-05-20 10:23 | Inpatient (IN) | payer OTHER ==
[2023-05-20] MEDS ORDERED: SODIUM CHLORIDE 0.9% 1,000 ML IV STA (11:05)
[2023-05-20] MEDS ORDERED: SODIUM CHLORIDE 0.9% 500 ML 500 ML IV STA (11:05)
[2023-05-20 11:28] LABS: Basophils % (A) 1 %; Eosinophils % (A) 0 %; HCT 48.5 % (39.0-53.0); HGB 16.4 gm/dL (13.0-17.5); Lymphocytes # (A) 1.8 k/uL (1.0-4.8); Lymphocytes % (A) 24 %; MCH 31.5 pg (25.0-35.0); MCHC 33.9 g/dL (31.0-37.0); Mean Platelet Volume 7.1; Monocytes # (A) 0.5 k/uL (0-1.0); Monocytes % (A) 6 %; Neutrophils # (A) 5.1 k/uL (1.3-7.7); Neutrophils % (A) 68 %; Platelet Count 390 k/uL (150-450); RBC 5.22 m/uL (4.30-5.90); WBC 7.5 k/uL (3.8-10.6)
[2023-05-20 11:32] LABS: ALT 19 U/L (4-49); African American GFR (CKD) >90 (>60 ml/min/1.73 sqM); Albumin 4.9 g/dL (3.5-5.0); Amylase 81 U/L (30-110); Anion Gap 15 mmol/L; Blood Urea Nitrogen 14 mg/dL (9-20); Calcium 8.9 mg/dL (8.4-10.2); Carbon Dioxide 25 mmol/L (22-30); Chloride 102 mmol/L (98-107); Glucose 135 mg/dL (74-99); Non-African American GFR(CKD) >90 (>60 ml/min/1.73 sqM); Sodium 142 mmol/L (137-145); Total Protein 7.9 g/dL (6.3-8.2)
[2023-05-20] MEDS ORDERED: ONDANSETRON 4 MG/2 ML VIAL IVP STA (11:41)
[2023-05-20 11:43] LABS: Alcohol 310 mg/dL; Magnesium 2.1 mg/dL (1.6-2.3); Potassium 3.7 mmol/L (3.5-5.1)
[2023-05-20 11:44] LABS: AST 29 U/L (17-59); Alkaline Phosphatase 52 U/L (38-126); Lipase 91 U/L (23-300)
--- NOTE | 2023-05-20 12:31 | ED ---
Alcohol HPI - General Chief Complaint: Alcohol Stated Complaint: AMS Time Seen by Provider: 05/20/23 10:43 Source: patient, RN notes reviewed Mode of arrival: ambulatory Limitations: no limitations - History of Present Illness Initial Comments: 42-year-old male presents emergency department from [facility] for evaluation due to alcohol intoxication, alcohol withdrawal. Patient states he drank at least a fifth of alcohol today. Patient is on have breath alcohol over 300 patient states he does have a history of alcohol withdrawal seizures has been in rehab in the past. Patient states he has depression but denies any suicidal at this time. Patient states that he was sent over here for withdrawal secondary to his history. - Related Data Home Medications Medication Instructions Recorded Confirmed [place] Carbonate 600 mg PO DAILY 03/06/23 03/06/23 Losartan [Cozaar] 25 mg PO DAILY 03/06/23 03/06/23 Mirtazapine [Remeron] 30 mg PO HS 03/06/23 03/06/23 haloperidoL [Haldol] 5 mg PO HS 03/06/23 03/06/23 Previous Rx's Medication Instructions Recorded Sertraline [Zoloft] 50 mg PO DAILY #30 tab 11/26/22 Allergies Allergy/AdvReac Type Severity Reaction Status Date / Time No Known Allergies Allergy Verified 05/20/23 10:30 Review of Systems ROS Statement: Those systems with pertinent positive or pertinent negative responses have been documented in the HPI. ROS Other: All systems not noted in ROS Statement are negative. Past Medical History Past Medical History: Hypertension, Seizure Disorder Additional Past Medical History / Comment(s): Pt admits to decreasing ETOH x 2 mos. from QD to 1xweek a pint. Admits hx of withdrawal seizures. IBS. History of Any Multi-Drug Resistant Organisms: None Reported Past Surgical History: No Surgical Hx Reported Additional Past Surgical History / Comment(s): Hx of tori. hand surgery. Past Anesthesia/Blood Transfusion Reactions: No Reported Reaction Past Psychological History: Anxiety, Bipolar, Depression, Panic Disorder Smoking Status: Former smoker, Vaper Past Alcohol Use History: Abuse, Daily Past Drug Use History: None Reported General Exam Limitations: no limitations General appearance: alert, in no apparent distress, appears intoxicated Head exam: Present: atraumatic, normocephalic, normal inspection Eye exam: Present: normal appearance, PERRL, EOMI. Absent: scleral icterus, conjunctival injection, periorbital swelling ENT exam: Present: normal exam, normal oropharynx, mucous membranes moist Neck exam: Present: normal inspection, full ROM. Absent: tenderness, meningismus, lymphadenopathy Respiratory exam: Present: normal lung sounds bilaterally. Absent: respiratory distress, wheezes, rales, rhonchi, stridor Cardiovascular Exam: Present: normal rhythm, tachycardia, normal heart sounds. Absent: systolic murmur, diastolic murmur, rubs, gallop, clicks GI/Abdominal exam: Present: soft, normal bowel sounds. Absent: distended, tenderness, guarding, rebound, rigid Neurological exam: Present: alert Course Vital Signs 05/20/23 10:30 Temperature 97.9 F Pulse Rate 116 H Respiratory 18 Rate Blood Pressure 164/113 O2 Sat by Pulse 97 Oximetry Medical Decision Making - Medical Decision Making Was pt. sent in by a medical professional or institution ([facility], EVS MANAGER, urgent care, hospital, or senior care...) When possible be specific @ -[facility] Did you speak to anyone other than the patient for history (EMS, parent, family, police, friend...)? What history was obtained from this source @ -No Did you review nursing and triage notes (agree or disagree)? Why? @ -I reviewed and agree with nursing and triage notes Were old charts reviewed (outside hosp., previous admission, EMS record, old EKG, old radiological studies, urgent care reports/EKG's, senior care records)? Report findings @ -No old charts were reviewed Differential Diagnosis (chest pain, altered mental status, abdominal pain women, abdominal pain men, vaginal bleeding, weakness, fever, dyspnea, syncope, headache, dizziness, GI bleed, back pain, seizure, CVA, palpatations, mental health, musculoskeletal)? @ - intoxication alcohol abuse, alcohol withdrawal EKG interpreted by me (3pts min.). @ -None X-rays interpreted by me (1pt min.). @ -None done CT interpreted by me (1pt min.). @ -None done U/S interpreted by me (1pt. min.). @ -None done What testing was considered but not performed or refused? (CT, X-rays, U/S, labs)? Why? @ -None What meds were considered but not given or refused? Why? @ -None Did you discuss the management of the patient with other professionals (professionals i.e. , PA, EVS MANAGER, lab, RT, psych nurse, social media campaign manager, obstetrician gynecologist, teacher, light armored vehicle officer, social work case manager)? Give summary @ -Sound provider for admission Was smoking cessation discussed for >3mins.? @ -No Was critical care preformed (if so, how long)? @ -No Were there social determinants of health that impacted care today? How? (Homelessness, low income, unemployed, alcoholism, drug addiction, transportation, low edu. Level, literacy, decrease access to med. care, [facility], rehab)? @ -No Was there de-escalation of care discussed even if they declined (Discuss DNR or withdrawal of care, Hospice)? DNR status @ -No What co-morbidities impacted this encounter? (DM, HTN, Smoking, COPD, CAD, Cancer, CVA, ARF, Chemo, Hep., AIDS, mental health diagnosis, sleep apnea, morbid obesity)? @ -None Was patient admitted / discharged? Hospital course, mention meds given and route, prescriptions, significant lab abnormalities, going to OR and other pertinent info. @ -Admitted secondary to alcohol and denies skin courtney, history of alcohol withdrawal and seizures.alcohol withdrawl] Undiagnosed new problem with uncertan rognosis? @ -[No] Drug Therapy requiring intensive monitoring for toxicity (Heparin, Nitro, Insuli, ardizem)? @ -[No] Were any proedres done? @ -[No] Diagnsis/symtom? @ -[ alcohol intoxication, alcohol withdrawal Acute, or Chronic, or Acute on ChronAcute Acute Uncomplicated (without systemic symptoms) or Complicated ([facility] symptms)? @uncomplicated fects of treatment? @ -No Exacerbation, Progression, or Severe Exacerbation? @ -No Poses a threat to life or bodily function? How? (Chest pain, USA, LA, pneumonia, PE, COPD, DKA, ARF, appy, cholecystitis, CVA, Diverticulitis, Homicidal, Suicidal, threat to staff... and all critical care pts) @ -yes possible withdrawl - Lab Data Result diagrams: 05/20/23 11:14 05/20/23 11:14 Lab Results 05/20/23 05/20/23 Range/Units 11:14 11:14 WBC 7.5 (3.8-10.6) k/uL RBC 5.22 (4.30-5.90) m/uL Hgb 16.4 (13.0-17.5) gm/dL Hct 48.5 (39.0-53.0) % MCV 93.0 (80.0-100.0) fL MCH 31.5 (25.0-35.0) pg MCHC 33.9 (31.0-37.0) g/dL RDW 14.0 (11.5-15.5) % Plt Count 390 (150-450) k/uL MPV 7.1 Neutrophils % 68 % Lymphocytes % 24 % Monocytes % 6 % Eosinophils % 0 % Basophils % 1 % Neutrophils # 5.1 (1.3-7.7) k/uL Lymphocytes # 1.8 (1.0-4.8) k/uL Monocytes # 0.5 (0-1.0) k/uL Eosinophils # 0.0 (0-0.7) k/uL Basophils # 0.0 (0-0.2) k/uL Sodium 142 (137-145) mmol/L Potassium 3.7 (3.5-5.1) mmol/L Chloride 102 (98-107) mmol/L Carbon Dioxide 25 (22-30) mmol/L Anion Gap 15 mmol/L BUN 14 (9-20) mg/dL Creatinine 0.86 (0.66-1.25) mg/dL Est GFR (CKD-EPI)AfAm >90 (>60 ml/min/1.73 sqM) Est GFR (CKD-EPI)NonAf >90 (>60 ml/min/1.73 sqM) Glucose 135 H (74-99) mg/dL Calcium 8.9 (8.4-10.2) mg/dL Magnesium 2.1 (1.6-2.3) mg/dL Total Bilirubin 1.0 (0.2-1.3) mg/dL AST 29 (17-59) U/L ALT 19 (4-49) U/L Alkaline Phosphatase 52 (38-126) U/L Total Protein 7.9 (6.3-8.2) g/dL Albumin 4.9 (3.5-5.0) g/dL Amylase 81 (30-110) U/L Lipase 91 (23-300) U/L Serum Alcohol 310 H* mg/dL Disposition Clinical Impression: Alcohol intoxication, Alcohol use disorder, Alcohol withdrawal syndrome Disposition: ADMITTED IP TO THIS HOSP Condition: Fair Referrals: None,Stated [Primary Care Provider] - 1-2 days Time of Disposition: 13:34
[2023-05-20] MEDS ORDERED: LORazepam 1 MG TAB PO PRN ×3 (13:27)
[2023-05-20] MEDS ORDERED: NALOXONE 0.4 MG/ML 1 ML VIAL IV PRN (13:51)
[2023-05-20] MEDS ORDERED: ONDANSETRON 4 MG/2 ML VIAL IVP PRN (13:51)
[2023-05-20] MEDS: LORazepam 1 MG TAB PO PRN ×3 (13:57→22:17)
[2023-05-20] MEDS: ACETAMINOPHEN TAB 325 MG TAB PO PRN ×2 (13:57→20:29)
[2023-05-20] MEDS: SODIUM CHLORIDE 0.9% 1,000 ML IV SCH (14:03)
--- NOTE | 2023-05-20 14:30 | P.HPIM ---
History of Present Illness H&P Date: 05/20/23 History of Presenting Illness: Patient is a very pleasant 42-year-old male with a past medical history of alcohol abuse, alcohol withdrawal seizures, hypertension, bipolar disorder, anxiety, depression, and panic disorder. He presented to the emergency department from [facility]. Patient was brought into our facility by [facility] worker for assistance with detox secondary to history of alcohol withdrawal seizures. Patient reports having 2 previous alcohol withdrawal seizures in the past, states last one was nearly 7 years ago. He states he typically does not drink on a daily basis but does have binge drinking behaviors and has been drinking at least a fifth of alcohol daily for the last 3-5 days. Patient denies use of any other drugs. He reports feeling anxious but otherwise denies having any headache, lightheadedness, dizziness, chest pain, palpitations, shortness of breath, nausea, vomiting, or experiencing any numbness/tingling/weakness in his extremities. He underwent full evaluation in the emergency department. Vital signs upon arrival show blood pressure elevated at 164/113, heart rate 116, respiratory rate 18, temp 97.9F, and SpO2 of 97% on room air. Labs were completed and reviewed. CBC and BMP were unremarkable. Liver profile also showing normal findings at this time. Amylase 81 and lipase 91. Serum alcohol level was elevated at 310. Patient being admitted under our services to the observation unit for assistance with medical detox. Review of systems: Pertinent positives and negatives as discussed in HPI, a complete review of systems was performed and all other systems are negative. Physical exam: Vital signs reviewed and stable. General: Nontoxic, no distress and appears stated age. Derm: Skin warm and dry, normal coloration for ethnicity. Head: Atraumatic, normocephalic and symmetric. Eyes: EOMs intact, no lid lag, and anicteric sclera Mouth: no lip lesions, mucus membranes moist Cardiovascular: regular rate and rhythm with normal S1S2, no murmur, positive posterior tibial pulses bilaterally, and cap refill < 2 seconds. Lungs: Respirations even, regular, and unlabored on room air. Lungs CTA bilaterally, no rhonchi, no rales, no wheezing, and no accessory muscle usage. Abdominal: soft, nontender to palpation, no guarding, no appreciable organomegaly Ext: ROM intact. No gross muscle atrophy, no edema, no contractures Neuro: Speech clear, face symmetrical and CN II-XII grossly intact with no noted focal neuro deficits Psych: Alert and oriented to person, place, time, and situation. Appropriate and pleasant affect. Assessment and Plan of Care: Alcohol intoxication pending withdrawal History of alcohol abuse with binge drinking behaviors History of alcohol withdrawal seizures -Order placed for monitoring of CIWA scores and patient to be medicated with Ativan 0.5 mg every 4 hours as needed for CIWA score of 4-5, Ativan 1 mg every 4 hours for CIWA score of 6-7, Ativan 2 mg every 3 hours CIWA score of 8-9, and Ativan 2 mg every 2 hours forr CIWA score of 10 or greater. -Continuous IV hydration With 0.9% normal saline at 75 mL's per hour -Thiamine 100 mg daily -Multivitamin daily -Folate 1 mg daily -Seizure, fall, aspiration, and elopement precautions in place. -Urine drug screen -Continued close monitoring of electrolytes and replace as needed. -Telemetry monitoring. Bipolar disorder Anxiety Depression Panic disorder -It appears patient is on an extensive psychiatric medication regimen consisting of Haldol, lithium, Remeron, and Zoloft. Dosing is unclear at this time. Awaiting med rec to be completed by manager of pharmacy. Will order home medications once medication reconciliation can be completed and accurate dosing can be verified. -Order was placed for lithium level. Data and imaging reviewed: -Vital signs upon arrival show blood pressure elevated at 164/113, heart rate 116, respiratory rate 18, temp 97.9F, and SpO2 of 97% on room air. -Labs were completed and reviewed. CBC and BMP were unremarkable. Liver profile also showing normal findings at this time. Amylase 81 and lipase 91. Serum alcohol level was elevated at 310. Patient being admitted under our services to the observation unit for assistance with medical detox with an anticipated less than 2 midnight stay. CODE STATUS: Full code DVT prophylaxis: Heparin Discussed with: Patient, RN, and ED provider Anticipated discharge date: Likely within the next 24-[address]: Home Patient was seen independently by Nurse Practitioner. This document was prepared using [employer] dictation software. Please allow for errors in farm equipment maintenance supervisor while rare they do occur. Richard Mckenzie NP rendered care for this patient independently, reviewed the findings and plan as documented in the note above. I did not physically speak with or examine the patient on this date. Past Medical History Past Medical History: Hypertension, Seizure Disorder Additional Past Medical History / Comment(s): Pt admits to decreasing ETOH x 2 mos. from QD to 1xweek a pint. Admits hx of withdrawal seizures. IBS. History of Any Multi-Drug Resistant Organisms: None Reported Past Surgical History: No Surgical Hx Reported Additional Past Surgical History / Comment(s): Hx of tori. hand surgery. Past Anesthesia/Blood Transfusion Reactions: No Reported Reaction Past Psychological History: Anxiety, Bipolar, Depression, Panic Disorder Smoking Status: Former smoker, Vaper Past Alcohol Use History: Abuse, Daily Past Drug Use History: None Reported Medications and Allergies Home Medications Medication Instructions Recorded Confirmed Type Losartan [Cozaar] 25 mg PO DAILY 03/06/23 05/20/23 History haloperidoL [Haldol] 5 mg PO HS 03/06/23 05/20/23 History [place] Carbonate [[place] 300 mg PO BID 05/20/23 05/20/23 History Carbonate ER] OLANZapine 5 mg PO DAILY PRN 05/20/23 05/20/23 History OLANZapine [ZyPREXA] 10 mg PO HS 05/20/23 05/20/23 History Sertraline [Zoloft] 100 mg PO DAILY 05/20/23 05/20/23 History rOPINIRole HCL [Requip] 1 mg PO HS 05/20/23 05/20/23 History Allergies Allergy/AdvReac Type Severity Reaction Status Date / Time No Known Allergies Allergy Verified 05/20/23 16:20 Physical Exam Vitals: Vital Signs Temp Pulse Resp BP Pulse Ox 05/20/23 14:10 99 18 146/95 94 L 05/20/23 10:30 97.9 F 116 H 18 164/113 97 Intake and Output 05/19/23 05/20/23 05/20/23 22:59 06:59 14:59 Other: Weight 96.162 kg Results CBC & Chem 7: 05/21/23 03:26 05/21/23 03:26 Labs: Abnormal Lab Results - Last 24 Hours (Table) 05/20/23 Range/Units 11:14 Glucose 135 H (74-99) mg/dL Serum Alcohol 310 H* mg/dL
[2023-05-20] MEDS: HEPARIN SODIUM,PORCINE 5,000 UNIT/ML 1 ML VIAL SQ SCH ×2 (16:22→20:29)
[2023-05-20 18:29] LABS: Amphetamine Screen,Urine Not Detected (NotDetected); Barbiturate Screen,Urine Not Detected (NotDetected); Benzodiazepines Screen,Urine Detected (NotDetected); Cocaine Screen,Urine Not Detected (NotDetected); Methadone Screen, Urine Not Detected (NotDetected); Opiate Screen,Urine Not Detected (NotDetected); Oxycodone Screen, Urine Not Detected (NotDetected); Phencyclidine Screen,Urine Not Detected (NotDetected); Tricyclic Antidepressant,Urine Not Detected (NotDetected); Urn Cannabinoid Scrn Not Detected (NotDetected)
[2023-05-20] MEDS ORDERED: OLANZapine 5 MG TAB PO PRN (18:53)
[2023-05-20] MEDS: haloperidoL 5 MG TAB PO SCH (20:29)
[2023-05-20] MEDS: LITHIUM CARBONATE 300 MG CAP PO SCH (20:29)
[2023-05-20] MEDS: OLANZapine 10 MG TAB PO SCH (20:29)
[2023-05-21] MEDS: LORazepam 1 MG TAB PO PRN ×5 (03:36→20:09)
[2023-05-21] MEDS: SODIUM CHLORIDE 0.9% 1,000 ML IV SCH ×2 (03:39→16:30)
[2023-05-21] MEDS: FOLIC ACID 1 MG TAB PO SCH (08:01)
[2023-05-21] MEDS: MULTIVITAMINS, THERA 1 EACH TAB PO SCH (08:01)
[2023-05-21] MEDS: THIAMINE 100 MG TAB PO SCH (08:01)
[2023-05-21] MEDS: HEPARIN SODIUM,PORCINE 5,000 UNIT/ML 1 ML VIAL SQ SCH ×3 (08:01→23:15)
[2023-05-21] MEDS: LOSARTAN 25 MG TAB PO SCH (08:01)
[2023-05-21] MEDS: LITHIUM CARBONATE 300 MG CAP PO SCH ×2 (08:01→20:09)
[2023-05-21] MEDS: SERTRALINE 100 MG TAB PO SCH (08:01)
[2023-05-21 08:48] LABS: HCT 40.9 % (39.6-50.0); HGB 13.6 g/dL (13.0-17.0); MCH 31.2 pg (27.0-32.0); MCHC 33.3 g/dL (32.0-37.0); MCV 93.8 FL (80.0-97.0); Mean Platelet Volume 9.3 FL (9.5-12.2); NRBC Per 100 WBC 0 X 10*3/uL (0.00-0.01); Platelet Count 268 X 10*3/uL (140-440); RBC 4.36 X 10*6/uL (4.40-5.60); RDW 13.2 % (11.5-14.5); WBC 6.02 X 10*3/uL (4.50-10.00)
[2023-05-21 09:01] LABS: ALT 14 U/L (10-49); AST 19 U/L (14-35); Albumin 4.1 g/dL (3.8-4.9); Albumin/Globulin Ratio 1.95 Ratio (1.60-3.17); Alkaline Phosphatase 51 U/L (41-126); Blood Urea Nitrogen 15.6 mg/dL (9.0-27.0); Calcium 8.2 mg/dL (8.7-10.3); Carbon Dioxide 26.2 mmol/L (21.6-31.8); Chloride 102 mmol/L (96-109); Globulin 2.1 g/dL (1.6-3.3); Glucose 101 mg/dL (70-110); Magnesium 1.7 mg/dL (1.5-2.4); Sodium 141 mmol/L (135-145); Total Bilirubin 1.7 mg/dL (0.3-1.2); Total Protein 6.2 g/dL (6.2-8.2)
--- NOTE | 2023-05-21 17:22 | P.PN ---
Subjective Progress Note Date: 05/21/23 History of Presenting Illness: Patient is a very pleasant 42-year-old male with a past medical history of alcohol abuse, alcohol withdrawal seizures, hypertension, bipolar disorder, anx iety, depression, and panic disorder. He presented to the emergency department from [facility]. Patient was brought into our facility by [facility] worker for assistance with detox secondary to history of alcohol withdrawal seizures. Patient reports having 2 previous alcohol withdrawal seizures in the past, states last one was nearly 7 years ago. He states he typically does not drink on a daily basis but does have binge drinking behaviors and has been drinking at least a fifth of alcohol daily for the last 3-5 days. Patient denies use of any other drugs. He reports feeling anxious but otherwise denies having any headache, lightheadedness, dizziness, chest pain, palpitations, shortness of breath, [place], vomiting, or experiencing any numbness/tingling/weakness in his extremities. He underwent full evaluation in the emergency department. Vital signs upon arrival show blood pressure elevated at 164/113, heart rate 116, respiratory rate 18, temp 97.9F, and SpO2 of 97% on room air. Labs were co mpleted and reviewed. CBC and BMP were unremarkable. Liver profile also showing normal findings at this time. Amylase 81 and lipase 91. Serum alcohol level was elevated at 310. Patient being admitted under our services to the observation unit for assistance with medical detox. Physical exam: Patient seen and fully evaluated at bedside this morning. Patient reports feeling "rotten". Patient has had a total of 5 mg of Ativan since admission. Vital signs reviewed and stable. General: Nontoxic, no distress and appears stated age. Derm: Skin warm and dry, normal coloration for ethnicity. Head: Atraumatic, normocephalic and symmetric. Eyes: EOMs intact, no lid lag, and anicteric sclera Mouth: no lip lesions, mucus membranes moist Cardiovascular: regular rate and rhythm with normal S1S2, no murmur, positive posterior tibial pulses bilaterally, and cap refill < 2 seconds. Lungs: Respirations even, regular, and unlabored on room air. Lungs CTA bilaterally, no rhonchi, no rales, no wheezing, and no accessory muscle usage. Abdominal: soft, nontender to palpation, no guarding, no appreciable organomegaly Ext: ROM intact. No gross muscle atrophy, no edema, no contractures Neuro: Speech clear, face symmetrical and CN II-XII grossly intact with no noted focal neuro deficits Psych: Alert and oriented to person, place, time, and situation. Appropriate and pleasant affect. Assessment and Plan of Care: Alcohol withdrawal History of alcohol abuse with binge drinking behaviors History of alcohol withdrawal seizures -Continue monitoring of CIWA scores and patient to be medicated with Ativan 0.5 mg every 4 hours as needed for CIWA score of 4-5, Ativan 1 mg every 4 hours for CIWA score of 6-7, Ativan 2 mg every 3 hours CIWA score of 8-9, and Ativan 2 mg every 2 hours forr CIWA score of 10 or greater. Current CIWA score is 7 and patient has had a total of 5 mg of Ativan over the past 12 hours. -Continuous IV hydration with 0.9% normal saline at 75 mL's per hour -Thiamine 100 mg daily -Multivitamin daily -Folate 1 mg daily -Seizure, fall, aspiration, and elopement precautions in place. -Urine drug screen positive for benzodiazepines -Continued close monitoring of electrolytes and replace as needed. -Telemetry monitoring. Hypomagnesemia -Magnesium slightly low at 1.7 orders placed for magnesium sulfate 2 g IVPB 1 dose. Hypertension Continue daily medication regimen with losartan 25 mg daily. Bipolar disorder Anxiety Depression Panic disorder -Patient to continue home medication regimen with Haldol 5 mg nightly, lithium 300 mg twice daily, Zyprexa 10 mg nightly, Requip 1 mg nightly, and sertraline 100 mg daily. -[place] level < 2, patient has not likely been compliant with taking medications as prescribed. Data and imaging reviewed: -Vital signs upon arrival show blood pressure 157/80, heart rate 89, respiratory rate 18, temp 97.5F, SpO2 of 96% on room air. -Labs were completed and reviewed. CBC normal findings. BMP showing no significant abnormalities with the exception of slightly elevated anion gap of 12.80. Magnesium was slightly low at 1.7. Liver profile unremarkable. Patient being admitted under our services to the observation unit for assistance with medical detox with an anticipated less than 2 midnight stay. CODE STATUS: Full code DVT prophylaxis: Heparin Discussed with: Patient, RN, and ED provider Anticipated discharge date: Likely within the next 24-[address]: Home Patient was seen independently by Nurse Practitioner. This document was prepared using Dragon dictation software. Please allow for errors in housing quality standard inspector while rare they do occur. Objective - Vital Signs Vital signs: Vital Signs Temp 97.5 F L 05/21/23 07:00 Pulse 89 05/21/23 07:00 Resp 18 05/21/23 07:00 BP 157/80 05/21/23 07:00 Pulse Ox 96 05/21/23 07:00 FiO2 Intake & Output 05/20/23 05/21/23 05/21/23 18:59 06:59 18:59 Weight 96.162 kg Other: # Voids 2 # Bowel Movements 1 - Labs CBC & Chem 7: 05/21/23 03:26 05/21/23 03:26 Labs: Abnormal Lab Results - Last 24 Hours (Table) 05/20/23 05/20/23 Range/Units 11:14 18:05 Glucose 135 H (74-99) mg/dL U Benzodiazepines Scrn Detected H (NotDetected) Serum Alcohol 310 H* mg/dL
[2023-05-21] MEDS: MAGNESIUM SULFATE-D5W PMX 1 GM in DEXTROSE/WATER 1 100ML.BAG IVPB SCH ×2 (17:38→19:00)
[2023-05-21] MEDS: OLANZapine 10 MG TAB PO SCH (20:09)
[2023-05-21] MEDS: haloperidoL 5 MG TAB PO SCH (20:09)
[2023-05-21] MEDS ORDERED: LOPERAMIDE 2 MG CAP PO STA (20:15)
[2023-05-21] MEDS ORDERED: SIMETHICONE 80 MG CHEWABLE PO STA (20:15)
[2023-05-21] MEDS: LORazepam 0.5 MG TAB PO PRN (23:30)
[2023-05-22] MEDS: ACETAMINOPHEN TAB 325 MG TAB PO PRN ×2 (03:08→16:35)
[2023-05-22] MEDS: LORazepam 1 MG TAB PO PRN ×2 (03:08→14:50)
[2023-05-22] MEDS: SODIUM CHLORIDE 0.9% 1,000 ML IV SCH ×2 (05:31→20:08)
[2023-05-22] MEDS: THIAMINE 100 MG TAB PO SCH (08:30)
[2023-05-22] MEDS: LOSARTAN 25 MG TAB PO SCH (08:30)
[2023-05-22] MEDS: SERTRALINE 100 MG TAB PO SCH (08:31)
[2023-05-22] MEDS: HEPARIN SODIUM,PORCINE 5,000 UNIT/ML 1 ML VIAL SQ SCH ×3 (08:31→23:48)
[2023-05-22] MEDS: MULTIVITAMINS, THERA 1 EACH TAB PO SCH (08:31)
[2023-05-22] MEDS: LITHIUM CARBONATE 300 MG CAP PO SCH ×2 (08:31→20:09)
[2023-05-22] MEDS: FOLIC ACID 1 MG TAB PO SCH (08:31)
[2023-05-22 10:49] LABS: HCT 36.7 % (39.6-50.0); HGB 12.5 g/dL (13.0-17.0); MCH 31.3 pg (27.0-32.0); MCHC 34.1 g/dL (32.0-37.0); Mean Platelet Volume 9.6 FL (9.5-12.2); NRBC Per 100 WBC 0 X 10*3/uL (0.00-0.01); Platelet Count 207 X 10*3/uL (140-440); RBC 3.99 X 10*6/uL (4.40-5.60); RDW 13.1 % (11.5-14.5)
[2023-05-22 11:08] LABS: ALT 14 U/L (10-49); AST 20 U/L (14-35); Albumin 4.1 g/dL (3.8-4.9); Albumin/Globulin Ratio 1.86 Ratio (1.60-3.17); Alkaline Phosphatase 69 U/L (41-126); Blood Urea Nitrogen 11.7 mg/dL (9.0-27.0); Calcium 8.6 mg/dL (8.7-10.3); Chloride 104 mmol/L (96-109); Globulin 2.2 g/dL (1.6-3.3); Glucose 94 mg/dL (70-110); Magnesium 2.4 mg/dL (1.5-2.4); Potassium 3.5 mmol/L (3.5-5.5); Sodium 139 mmol/L (135-145); Total Bilirubin 1.4 mg/dL (0.3-1.2); Total Protein 6.3 g/dL (6.2-8.2)
--- NOTE | 2023-05-22 15:06 | P.PN ---
Subjective Progress Note Date: 05/22/23 History of Presenting Illness: Patient is a very pleasant 42-year-old male with a past medical history of alcohol abuse, alcohol withdrawal seizures, hypertension, bipolar disorder, anx iety, depression, and panic disorder. He presented to the emergency department from [facility]. Patient was brought into our facility by [facility] worker for assistance with detox secondary to history of alcohol withdrawal seizures. He underwent full evaluation in the emergency department. Vital signs upon arrival show blood pressure elevated at 164/113, heart rate 116, respiratory rate 18, temp 97.9F, and SpO2 of 97% on room air. Labs were completed and reviewed. CBC and BMP were unremarkable. Liver profile also showing normal findings at this time. Amylase 81 and lipase 91. Serum alcohol level was elevated at 310. Patient was admitted under our services to the observation unit for assistance with medical detox. Physical exam: Patient seen and fully evaluated at bedside this morning. Patient reports feeling miserable this morning and is very diaphoretic. Patient with ice packs and cold rags. Current CIWA score is 10 and patient with active tremors noted. Patient feeling observation stay and admission changed inpatient at this time for continued medical detox. Vital signs reviewed and stable. General: Nontoxic, no distress and appears stated age. Derm: Skin warm and diaphoretic, normal coloration for ethnicity. Head: Atraumatic, normocephalic and symmetric. Eyes: EOMs intact, no lid lag, and anicteric sclera Mouth: no lip lesions, mucus membranes moist Cardiovascular: regular rate and rhythm with normal S1S2, no murmur, positive posterior tibial pulses bilaterally, and cap refill < 2 seconds. Lungs: Respirations even, regular, and unlabored on room air. Lungs CTA bilaterally, no rhonchi, no rales, no wheezing, and no accessory muscle usage. Abdominal: soft, nontender to palpation, no guarding, no appreciable organomegaly Ext: ROM intact. No gross muscle atrophy, no edema, no contractures Neuro: Speech clear, face symmetrical and CN II-XII grossly intact with no noted focal neuro deficits. Tremors noted. Psych: Alert and oriented to person, place, time, and situation. Appropriate and pleasant affect. Assessment and Plan of Care: Alcohol withdrawal History of alcohol abuse with binge drinking behaviors History of alcohol withdrawal seizures -Continue monitoring of CIWA scores and patient to be medicated with Ativan 0.5 mg every 4 hours as needed for CIWA score of 4-5, Ativan 1 mg every 4 hours for CIWA score of 6-7, Ativan 2 mg every 3 hours CIWA score of 8-9, and Ativan 2 mg every 2 hours forr CIWA score of 10 or greater. -Current CIWA score is 10 and patient has had a total of 7.5 mg of Ativan over the past 24 hours. Patient failing observation stay and with elevated CIWA scores order placed for admit to inpatient at this time. -Continuous IV hydration with 0.9% normal saline at 75 mL's per hour -Continue with Thiamine 100 mg daily, Multivitamin daily, and Folate 1 mg daily -Seizure, fall, aspiration, and elopement precautions remain in place. -Continued close monitoring of electrolytes and replace as needed. -Telemetry monitoring. Hypomagnesemia, resolved status post replacement. Hypertension Continue daily medication regimen with losartan 25 mg daily. Bipolar disorder Anxiety Depression Panic disorder -Patient to continue home medication regimen with Haldol 5 mg nightly, lithium 300 mg twice daily, Zyprexa 10 mg nightly, Requip 1 mg nightly, and sertraline 100 mg daily. -[place] level < 2, patient has not likely been compliant with taking medications as prescribed. Data and imaging reviewed: -Vital signs reviewed. Blood pressure 127/80, heart rate 87, respiratory rate 19, temperature 97.8F, and SpO2 of 97% on room air. -Labs were completed and reviewed. CBC showing mild normocytic anemia with hemoglobin stable at 12.5. BMP unremarkable. Liver profile showing elevated total bili of 1.4 otherwise normal findings. Hypomagnesemia resolved with Magnesium 2.4 this morning after yesterday's replacement. Current CIWA score is 10 and patient has had a total of 7.5 mg of Ativan over the past 24 hours. Patient failing observation stay secondary to elevated CIWA scores and continued need for medical detox, order placed for admission to inpatient at this time. CODE STATUS: Full code DVT prophylaxis: Heparin Anticipated discharge date: Clinical course to determine Anticipated discharge place: Home Patient was seen independently by Nurse Practitioner. This document was prepared using [employer] dictation software. Please allow for errors in community outreach manager while rare they do occur. Richard Mckenzie NP rendered care for this patient independently, reviewed the findings and plan as documented in the note above. I did not physically speak with or examine the patient on this date. Objective - Vital Signs Vital signs: Vital Signs Temp 97.8 F 05/22/23 07:00 Pulse 87 05/22/23 07:00 Resp 19 05/22/23 07:00 BP 127/88 05/22/23 07:00 Pulse Ox 97 05/22/23 07:00 FiO2 Intake & Output 05/21/23 05/22/23 05/22/23 18:59 06:59 18:59 Intake Total 480 Output Total 1800 Balance 480 -1800 Intake: Oral 480 Output: Urine 1800 Other: # Voids 2 2 # Bowel Movements 0 - Labs CBC & Chem 7: 05/22/23 05:44 05/23/23 04:41
[2023-05-22] MEDS: chlordiazePOXIDE 25 MG CAP PO SCH ×2 (16:42→20:08)
[2023-05-22] MEDS: haloperidoL 5 MG TAB PO SCH (20:09)
[2023-05-22] MEDS: OLANZapine 10 MG TAB PO SCH (20:09)
[2023-05-23] MEDS: LORazepam 0.5 MG TAB PO PRN (02:50)
[2023-05-23 08:51] LABS: ALT 14 U/L (10-49); AST 18 U/L (14-35); Albumin 4.1 g/dL (3.8-4.9); Albumin/Globulin Ratio 1.78 Ratio (1.60-3.17); Alkaline Phosphatase 66 U/L (41-126); BUN/Creat Ratio 11.56 Ratio (12.00-20.00); Blood Urea Nitrogen 10.4 mg/dL (9.0-27.0); Calcium 8.9 mg/dL (8.7-10.3); Carbon Dioxide 24.5 mmol/L (21.6-31.8); Chloride 106 mmol/L (96-109); Globulin 2.3 g/dL (1.6-3.3); Glucose 86 mg/dL (70-110); Potassium 3.8 mmol/L (3.5-5.5); Sodium 140 mmol/L (135-145); Total Bilirubin 0.6 mg/dL (0.3-1.2); Total Protein 6.4 g/dL (6.2-8.2)
[2023-05-23] MEDS: MULTIVITAMINS, THERA 1 EACH TAB PO SCH (09:30)
[2023-05-23] MEDS: HEPARIN SODIUM,PORCINE 5,000 UNIT/ML 1 ML VIAL SQ SCH ×3 (09:30→23:25)
[2023-05-23] MEDS: SODIUM CHLORIDE 0.9% 1,000 ML IV SCH ×2 (09:30→23:25)
[2023-05-23] MEDS: chlordiazePOXIDE 25 MG CAP PO SCH ×4 (09:30→23:25)
[2023-05-23] MEDS: THIAMINE 100 MG TAB PO SCH (09:31)
[2023-05-23] MEDS: SERTRALINE 100 MG TAB PO SCH (09:31)
[2023-05-23] MEDS: FOLIC ACID 1 MG TAB PO SCH (09:31)
[2023-05-23] MEDS: LITHIUM CARBONATE 300 MG CAP PO SCH ×2 (09:31→20:18)
[2023-05-23] MEDS: LOSARTAN 25 MG TAB PO SCH (09:31)
--- NOTE | 2023-05-23 19:05 | P.PN ---
Subjective Progress Note Date: 05/23/23 History of Presenting Illness: Patient is a very pleasant 42-year-old male with a past medical history of alcohol abuse, alcohol withdrawal seizures, hypertension, bipolar disorder, anx iety, depression, and panic disorder. He presented to the emergency department from [facility]. Patient was brought into our facility by [facility] worker for assistance with detox secondary to history of alcohol withdrawal seizures. He underwent full evaluation in the emergency department. Vital signs upon arrival show blood pressure elevated at 164/113, heart rate 116, respiratory rate 18, temp 97.9F, and SpO2 of 97% on room air. Labs were completed and reviewed. CBC and BMP were unremarkable. Liver profile also showing normal findings at this time. Amylase 81 and lipase 91. Serum alcohol level was elevated at 310. Patient was admitted under our services to the observation unit for assistance with medical detox. Physical exam: Vital signs reviewed and stable. General: Nontoxic, no distress and appears stated age. Derm: Skin warm and dry, normal coloration for ethnicity. Head: Atraumatic, normocephalic and symmetric. Eyes: EOMs intact, no lid lag, and anicteric sclera Mouth: no lip lesions, mucus membranes moist Cardiovascular: regular rate and rhythm with normal S1S2, no murmur, positive posterior tibial pulses bilaterally, and cap refill < 2 seconds. Lungs: Respirations even, regular, and unlabored on room air. Lungs CTA bilaterally, no rhonchi, no rales, no wheezing, and no accessory muscle usage. Abdominal: soft, nontender to palpation, no guarding, no appreciable o rganomegaly Ext: ROM intact. No gross muscle atrophy, no edema, no contractures Neuro: Speech clear, face symmetrical and CN II-XII grossly intact with no noted focal neuro deficits. Mild Tremors noted. Psych: Alert and oriented to person, place, time, and situation. Appropriate and pleasant affect. Assessment and Plan of Care: Alcohol withdrawal History of alcohol abuse with binge drinking behaviors History of alcohol withdrawal seizures -Continue monitoring of CIWA scores and patient to be medicated with Ativan 0.5 mg every 4 hours as needed for CIWA score of 4-5, Ativan 1 mg every 4 hours for CIWA score of 6-7, Ativan 2 mg every 3 hours CIWA score of 8-9, and Ativan 2 mg every 2 hours forr CIWA score of 10 or greater. -Patient was also started on scheduled Librium 25 mg 3 times daily in addition to CIWA protocol. -Continuous IV hydration with 0.9% normal saline at 75 mL's per hour -Continue with Thiamine 100 mg daily, Multivitamin daily, and Folate 1 mg daily -Seizure, fall, aspiration, and elopement precautions remain in place. -Continued close monitoring of electrolytes and replace as needed. -Telemetry monitoring. Hypomagnesemia, resolved status post replacement. Hypertension Continue daily medication regimen with losartan 25 mg daily. Bipolar disorder Anxiety Depression Panic disorder -Patient to continue home medication regimen with Haldol 5 mg nightly, lithium 300 mg twice daily, Zyprexa 10 mg nightly, Requip 1 mg nightly, and sertraline 100 mg daily. -[place] level < 2, patient has not likely been compliant with taking medications as prescribed. Data and imaging reviewed: -Vital signs reviewed. Blood pressure 139/90, heart rate is 75, respiratory rate 15, temp 97.5F and SpO2 of 95% on room air. -Labs were completed and reviewed. BMP unremarkable. Magnesium normal findings at 2.0. CODE STATUS: Full code DVT prophylaxis: Heparin Anticipated discharge date: Clinical course to determine, possibly within the next [address]: Home Patient was seen independently by Nurse Practitioner. This document was prepared using [employer] dictation software. Please allow for errors in cupola tapper while rare they do occur. Richard Mckenzie NP rendered care for this patient independently, reviewed the findings and plan as documented in the note above. I did not physically speak with or examine the patient on this date. Objective - Vital Signs Vital signs: Vital Signs Temp 97.5 F L 05/23/23 07:00 Pulse 75 05/23/23 07:00 Resp 15 05/23/23 07:00 BP 139/90 05/23/23 07:00 Pulse Ox 95 05/23/23 07:00 FiO2 Intake & Output 05/22/23 05/23/23 05/23/23 18:59 06:59 18:59 Intake Total 598 180 Output Total 475 2250 Balance 123 -2250 180 Intake: Oral 598 180 Output: Urine 475 2250 Other: Voiding Method Toilet Urinal # Voids 2 1 - Labs CBC & Chem 7: 05/22/23 05:44 05/23/23 04:41 Labs: Abnormal Lab Results - Last 24 Hours (Table) 05/22/23 05/22/23 05/23/23 Range/Units 05:44 05:44 04:41 RBC 3.99 L (4.40-5.60) X 10*6/uL Hgb 12.5 L (13.0-17.0) g/dL Hct 36.7 L (39.6-50.0) % BUN/Creatinine Ratio 11.56 L (12.00-20.00) Ratio Calcium 8.6 L (8.7-10.3) mg/dL Total Bilirubin 1.4 H (0.3-1.2) mg/dL
[2023-05-23] MEDS: OLANZapine 10 MG TAB PO SCH (20:18)
[2023-05-23] MEDS: haloperidoL 5 MG TAB PO SCH (20:18)
[2023-05-24 07:43] VITALS: BP 158/96; RESP 15; TEMP 97.4
[2023-05-24] MEDS: LOSARTAN 25 MG TAB PO SCH (08:54)
[2023-05-24] MEDS: THIAMINE 100 MG TAB PO SCH (08:54)
[2023-05-24] MEDS: HEPARIN SODIUM,PORCINE 5,000 UNIT/ML 1 ML VIAL SQ SCH (08:54)
[2023-05-24] MEDS: MULTIVITAMINS, THERA 1 EACH TAB PO SCH (08:54)
[2023-05-24] MEDS: FOLIC ACID 1 MG TAB PO SCH (08:54)
[2023-05-24] MEDS: LITHIUM CARBONATE 300 MG CAP PO SCH (09:07)
[2023-05-24] MEDS: SERTRALINE 100 MG TAB PO SCH (09:07)
[2023-05-24] MEDS: chlordiazePOXIDE 25 MG CAP PO SCH (09:39)
[2023-05-24 10:44] VITALS: PULSE 75
--- NOTE | 2023-05-24 18:09 | P.DS ---
Providers Date of admission: 05/20/23 13:36 Expected date of discharge: 05/24/23 Attending physician: Dewayne Buck MD Primary care physician: Stated None Hospital Course: Discharge Diagnosis: Alcohol withdrawal History of alcohol abuse with binge drinking behaviors History of alcohol withdrawal seizures Hypomagnesemia, resolved status post replacement. Hypertension Bipolar disorder Anxiety Depression Panic disorder Hospital Course: Patient is a very pleasant 42-year-old male with a past medical history of alcohol abuse, alcohol withdrawal seizures, hypertension, bipolar disorder, anxiety, depression, and panic disorder. He presented to the emergency department from [facility]. Patient was brought into our facility by [facility] worker for assistance with detox secondary to history of alcohol withdrawal seizures. He underwent full evaluation in the emergency department. Vital signs upon arrival show blood pressure elevated at 164/113, heart rate 116, respiratory rate 18, temp 97.9F, and SpO2 of 97% on room air. Labs were completed and reviewed. CBC and BMP were unremarkable. Liver profile also showing normal findings at this time. Amylase 81 and lipase 91. Serum alcohol level was elevated at 310. Patient was admitted under our services for assistance with medical detox. Patient underwent for night hospitalization for detox. He was weaned back off of Ativan and has not had any Ativan and greater than 24 hours. Current CIWA score is 1. Medically, patient is stable for discharge at this time. Patient strongly encouraged to attend an inpatient drug and alcohol rehabilitation Center. Patient states that he will discuss this with his [facility] worker as he does not feel comfortable going to rehab at this time because he needs to look for a job and work on his finances. Patient strongly encouraged to avoid any and all alcohol use. Patient medically stable for discharge and provided with outpatient resources available to him including counseling information, AA meetings, and inpatient substance abuse facilities. Physical exam: Vital signs reviewed and stable. General: Nontoxic, no distress and appears stated age. Derm: Skin warm and dry, normal coloration for ethnicity. Head: Atraumatic, normocephalic and symmetric. Eyes: EOMs intact, no lid lag, and anicteric sclera Mouth: no lip lesions, mucus membranes moist Cardiovascular: regular rate and rhythm with normal S1S2, no murmur, positive posterior tibial pulses bilaterally, and cap refill < 2 seconds. Lungs: Respirations even, regular, and unlabored on room air. Lungs CTA bilaterally, no rhonchi, no rales, no wheezing, and no accessory muscle usage. Abdominal: soft, nontender to palpation, no guarding, no appreciable organomegaly Ext: ROM intact. No gross muscle atrophy, no edema, no contractures Neuro: Speech clear, face symmetrical and CN II-XII grossly intact with no noted focal neuro deficits. Psych: Alert and oriented to person, place, time, and situation. Appropriate and pleasant affect. A total of 33 minutes of time were spent preparing this complex discharge summary. Pt was discharged on 05/24/23 at 9:46 AM. Patient was seen independently by Nurse Practitioner. This document was prepared using [employer] dictation software. Please allow for errors in machine zipper trimmer while rare they do occur. Richard Mckenzie NP rendered care for this patient independently, reviewed the findings and plan as documented in the note above. I did not physically speak with or examine the patient on this date. Patient Condition at Discharge: Stable Plan - Discharge Summary New Discharge Prescriptions: Continue haloperidoL [Haldol] 5 mg PO HS OLANZapine 5 mg PO DAILY PRN PRN Reason: AGGITATION [place] Carbonate [[place] Carbonate ER] 300 mg PO BID Losartan [Cozaar] 25 mg PO DAILY rOPINIRole HCL [Requip] 1 mg PO HS Sertraline [Zoloft] 100 mg PO DAILY OLANZapine [ZyPREXA] 10 mg PO HS Discharge Medication List Losartan [Cozaar] 25 mg PO DAILY 03/06/23 [History] haloperidoL [Haldol] 5 mg PO HS 03/06/23 [History] [place] Carbonate [[place] Carbonate ER] 300 mg PO BID 05/20/23 [History] OLANZapine 5 mg PO DAILY PRN 05/20/23 [History] OLANZapine [ZyPREXA] 10 mg PO HS 05/20/23 [History] Sertraline [Zoloft] 100 mg PO DAILY 05/20/23 [History] rOPINIRole HCL [Requip] 1 mg PO HS 05/20/23 [History] Follow up Appointment(s)/Referral(s): None,Stated [Primary Care Provider] - 1-2 days Patient Instructions/Handouts: Alcohol Intoxication (DC), Abuse of Alcohol (DC), Alcohol Withdrawal (DC), Medical Clearance for Substance Abuse Treatment (DC), Alcohol Dependence (DC) Activity/Diet/Wound Care/Special Instructions: Activity: As tolerated. Take breaks as needed. Diet: Heart healthy and carb consistent diet. Avoid salts, or foods with hidden salts such as canned or boxed foods and frozen dinners. Extra salt makes your heart work harder and traps the fluid in your body for longer. Special Instructions: Take all of your medications as directed and remember to keep all of your doctor's appointments and follow-up as needed. As we have discussed on previous occasions and throughout this admission, it is strongly advised that you consider going to an inpatient drug and alcohol rehabilitation facility. It is recommended that you avoid any and all alcohol use. Thank you for allowing us to participate in your care, it was truly a pleasure having you for our patient!!! Discharge/Stand Alone Forms: AA [facility], Outpatient Counseling, In Substance Abuse Facilities Discharge Disposition: HOME SELF-CARE
== END 2023-05-24 13:13 | disposition home or self-care (01) | DRG 775 ==
LOC: EC 10:23 → 6NMEDSUR 13:35 → OBSVTOIN 13:36 → 6NMEDSUR 14:27
PROVIDERS: ADMIT Family Medicine; ATTEND Family Medicine
DX: F10.239 Alcohol dependence with withdrawal, unspecified (principal); Y90.8 Blood alcohol level of 240 mg/100 ml or more; F31.9 Bipolar disorder, unspecified; F10.229 Alcohol dependence with intoxication, unspecified; E83.42 Hypomagnesemia; I10 Essential (primary) hypertension; F41.0 Panic disorder [episodic paroxysmal anxiety]; K58.9 Irritable bowel syndrome, unspecified; Z79.899 Other long term (current) drug therapy; Z87.891 Personal history of nicotine dependence
CPT/HCPCS: 36415; 80053; 80178; 80306; 80320; 82150; 83690; 83735; 85025; 85027; 96361; 96374; 99285

== ENCOUNTER 2023-08-27 10:54 | Inpatient (IN) | payer MEDICAID, OTHER ==
--- NOTE | 2023-08-27 12:43 | ED ---
General Adult HPI - General Stated complaint: mental health Time Seen by Provider: 08/27/23 10:58 Source: patient, EMS, RN notes reviewed Mode of arrival: EMS Limitations: no limitations - History of Present Illness Initial comments: 42-year-old male presents emergency department with chief complaint depression, suicide ideation. Patient was brought via EMS he states that he feels like his meds are not working. He is concerned that he might start drinking again as he has a history of alcohol abuse. Patient states that he has been having worsening depression to the point where he feels that he can harm himself. He denies any drug use denies any physical complaints. - Related Data Home Medications Medication Instructions Recorded Confirmed Losartan [Cozaar] 25 mg PO DAILY 03/06/23 08/27/23 haloperidoL [Haldol] 5 mg PO HS 03/06/23 08/27/23 OLANZapine [ZyPREXA] 10 mg PO HS 05/20/23 08/27/23 Sertraline [Zoloft] 100 mg PO DAILY 05/20/23 08/27/23 Aspirin EC [Ecotrin] 325 mg PO DAILY 08/27/23 08/27/23 [place] Carbonate 300 mg PO BID 08/27/23 08/27/23 Naltrexone HCl [Revia] 50 mg PO DAILY 08/27/23 08/27/23 Allergies Allergy/AdvReac Type Severity Reaction Status Date / Time No Known Allergies Allergy Verified 08/27/23 12:55 Review of Systems ROS Statement: Those systems with pertinent positive or pertinent negative responses have been documented in the HPI. ROS Other: All systems not noted in ROS Statement are negative. Past Medical History Past Medical History: Hypertension, Seizure Disorder Additional Past Medical History / Comment(s): Pt admits to decreasing ETOH x 2 mos. from QD to 1xweek a pint. Admits hx of withdrawal seizures. IBS. History of Any Multi-Drug Resistant Organisms: None Reported Past Surgical History: No Surgical Hx Reported Additional Past Surgical History / Comment(s): Hx of tori. hand surgery. Past Anesthesia/Blood Transfusion Reactions: No Reported Reaction Past Psychological History: Anxiety, Bipolar, Depression, Panic Disorder Smoking Status: Former smoker, Vaper Past Alcohol Use History: Abuse, Daily Past Drug Use History: None Reported General Exam Limitations: no limitations General appearance: alert, in no apparent distress Head exam: Present: atraumatic, normocephalic, normal inspection Eye exam: Present: normal appearance, PERRL, EOMI. Absent: scleral icterus, conjunctival injection, periorbital swelling ENT exam: Present: normal exam, normal oropharynx, mucous membranes moist Neck exam: Present: normal inspection, full ROM. Absent: tenderness, meningismus, lymphadenopathy Respiratory exam: Present: normal lung sounds bilaterally. Absent: respiratory distress, wheezes, rales, rhonchi, stridor Cardiovascular Exam: Present: regular rate, normal rhythm, normal heart sounds. Absent: systolic murmur, diastolic murmur, rubs, gallop, clicks GI/Abdominal exam: Present: soft, normal bowel sounds. Absent: distended, tenderness, guarding, rebound, rigid Psychiatric exam: Present: depressed, flat affect Course Vital Signs 08/27/23 11:04 Temperature 98 F Pulse Rate 94 Respiratory 18 Rate Blood Pressure 154/94 O2 Sat by Pulse 98 Oximetry Medical Decision Making - Medical Decision Making Was pt. sent in by a medical professional or institution (, PA, SOW FARM TECHNICIAN, urgent care, hospital, or long-term...) When possible be specific @ -No Did you speak to anyone other than the patient for history (EMS, parent, family, police, friend...)? What history was obtained from this source @ -No Did you review nursing and triage notes (agree or disagree)? Why? @ -I reviewed and agree with nursing and triage notes Were old charts reviewed (outside hosp., previous admission, EMS record, old EKG, old radiological studies, urgent care reports/EKG's, long-term records)? Report findings @ -No old charts were reviewed Differential Diagnosis (chest pain, altered mental status, abdominal pain women, abdominal pain men, vaginal bleeding, weakness, fever, dyspnea, syncope, headache, dizziness, GI bleed, back pain, seizure, CVA, palpatations, mental health, musculoskeletal)? @ -[Differential Mental Health Depression, anxiety, bipolar, psychosis, schizophrenia, borderline personality, situational depression, adjustment disorder, behavioral disorder, brain tumor, malingering, substance abuse, encephalopathy, medication reaction, dementia, hypothyroidism, degenerative neurologic disorder, lupus.... This is not meant to be all-inclusive list EKG interpreted by me (3pts min.). @ -None X-rays interpreted by me (1pt min.). @ -None done CT interpreted by me (1pt min.). @ -None done U/S interpreted by me (1pt. min.). @ -None done What testing was considered but not performed or refused? (CT, X-rays, U/S, labs)? Why? @ -None What meds were considered but not given or refused? Why? @ -None Did you discuss the management of the patient with other professionals (professionals i.e. , PA, SOW FARM TECHNICIAN, lab, RT, psych nurse, director social welfare, powder shoveler, teacher, environmental health officer, registered nurse hh case manager)? Give summary @ -EPS, psychiatrist evaluated patient recommended inpatient treatment Was smoking cessation discussed for >3mins.? @ -No Was critical care preformed (if so, how long)? @ -No Were there social determinants of health that impacted care today? How? (Homelessness, low income, unemployed, alcoholism, drug addiction, transportation, low edu. Level, literacy, decrease access to med. care, skilled nursing, rehab)? @ -No Was there de-escalation of care discussed even if they declined (Discuss DNR or withdrawal of care, Hospice)? DNR status @ -No What co-morbidities impacted this encounter? (DM, HTN, Smoking, COPD, CAD, Cancer, CVA, ARF, Chemo, Hep., AIDS, mental health diagnosis, sleep apnea, morbid obesity)? @ -None Was patient admitted / discharged? Hospital course, mention meds given and route, prescriptions, significant lab abnormalities, going to OR and other pertinent info. @ -Admitted patient evaluated passively admitted to 3 . for further psychiatric treatment Undiagnosed new problem with uncertain prognosis? @ -No Drug Therapy requiring intensive monitoring for toxicity (Heparin, Nitro, Insulin, Cardizem)? @ -No Were any procedures done? @ -No Diagnosis/symptom? @ -Depression, suicide ideation Acute, or Chronic, or Acute on Chronic? @ -Acute Uncomplicated (without systemic symptoms) or Complicated (systemic symptoms)? @ -[Complicated Side effects of treatment? @ -No Exacerbation, Progression, or Severe Exacerbation? @ -No Poses a threat to life or bodily function? How? (Chest pain, [place], CA, pneumonia, PE, COPD, DKA, ARF, appy, cholecystitis, CVA, Diverticulitis, Homicidal, Suicidal, threat to staff... and all critical care pts) @ -Yes patient is suicidal - Lab Data Lab Results 08/27/23 08/27/23 Range/Units 11:14 11:14 Urine Opiates Screen Not Detected (NotDetected) Ur Oxycodone Screen Not Detected (NotDetected) Urine Methadone Screen Not Detected (NotDetected) Ur Barbiturates Screen Not Detected (NotDetected) U Tricyclic Antidepress Not Detected (NotDetected) Ur Phencyclidine Scrn Not Detected (NotDetected) Ur Amphetamines Screen Not Detected (NotDetected) U Methamphetamines Scrn Not Detected (NotDetected) U Benzodiazepines Scrn Not Detected (NotDetected) Urine Cocaine Screen Not Detected (NotDetected) U Marijuana (THC) Screen Not Detected (NotDetected) SARS-CoV-2 (PCR) Not Detected (Not Detectd) Disposition Clinical Impression: Suicidal ideation, Depression Disposition: TRANSFER TO PSYCH HOSP/UNIT Referrals: None,Stated [Primary Care Provider] - 1-2 days Time of Disposition: 15:01
[2023-08-27 12:50] LABS: Amphetamine Screen,Urine Not Detected (NotDetected); Barbiturate Screen,Urine Not Detected (NotDetected); Benzodiazepines Screen,Urine Not Detected (NotDetected); Cocaine Screen,Urine Not Detected (NotDetected); Methadone Screen, Urine Not Detected (NotDetected); Opiate Screen,Urine Not Detected (NotDetected); Oxycodone Screen, Urine Not Detected (NotDetected); Phencyclidine Screen,Urine Not Detected (NotDetected); Tricyclic Antidepressant,Urine Not Detected (NotDetected); Urn Cannabinoid Scrn Not Detected (NotDetected)
[2023-08-27] MEDS ORDERED: MAG HYDROX/AL HYDROX/SIMETH 355 ML BOTTLE PO PRN (17:05)
[2023-08-27] MEDS ORDERED: MAGNESIUM HYDROXIDE 2,400 MG/30 ML CUP PO PRN (17:05)
[2023-08-27] MEDS ORDERED: ACETAMINOPHEN TAB 325 MG TAB PO PRN (17:05)
[2023-08-27] MEDS ORDERED: haloperidoL 5 MG TAB PO PRN (17:09)
[2023-08-27] MEDS ORDERED: HALOPERIDOL LACTATE 5 MG/ML 1 ML VIAL IM PRN (17:09)
[2023-08-27] MEDS: OLANZapine 10 MG TAB PO SCH (20:46)
[2023-08-27] MEDS: LITHIUM CARBONATE 300 MG CAP PO SCH (20:46)
--- NOTE | 2023-08-28 01:54 | P.CONS ---
History of Present Illness - Reason for Consult Consult date: 08/28/23 - History of Present Illness The patient is a 42-year-old male with a PMH of alcohol abuse with alcohol withdrawal seizures, bipolar disorder, hypertension, anxiety, and depression presented to the emergency room with complaints of depression and suicidal ideation. The patient was admitted to the mental health unit where he was seen and evaluated. Patient reports that he has been struggling with depression for the past several years, but it has now worsened as he has been off from alcohol for the past 3 months and is having very strong urges to resume again. He denies any physical complaints at the time of interview. Denies experiencing chest discomfort, shortness of breath, fever, chills, cough, nausea, vomiting, abdominal pain, diarrhea. Denies substance use or tobacco use. Review of systems: Pertinent positives and negatives as discussed in HPI, a complete review of systems was performed and all other systems are negative. Physical examination: General: non toxic, no distress, appears at stated age, normal weight Derm: no unusual rashes/lesions, no unusual ecchymoses, warm, dry Head: atraumatic, normocephalic, symmetric Eyes: EOMI, no lid lag, anicteric sclera ENT: Nose and ears atraumatic, no thrush, no pharyngeal erythema Neck: trachea midline, supple Mouth: no lip lesion, mucus membranes moist Cardiovascular: S1S2 reg, no murmur, no edema Lungs: CTA bilateral, no rhonchi, no rales , no accessory muscle use Abdominal: soft, nontender to palpation, no guarding Ext: no gross muscle atrophy, no contractures, Neuro: No gross focal neuro deficits noted Psych: Alert, oriented, appropriate affect Assessment: Depression and suicidal ideation Plan: Defer management of depression and suicidal ideation to the primary psychiatry service Thank you for allowing us to participate in the care of this patient. We will follow peripherally. Do not hesitate to contact us with questions. Someone can be reached from the [facility] hospitalist group at all hours of the day at [phone]. Past Medical History Past Medical History: Hypertension, Seizure Disorder Additional Past Medical History / Comment(s): Pt admits to decreasing ETOH x 2 mos. from QD to 1xweek a pint. Admits hx of withdrawal seizures. IBS. History of Any Multi-Drug Resistant Organisms: None Reported Past Surgical History: No Surgical Hx Reported Additional Past Surgical History / Comment(s): Hx of tori. hand surgery. Past Anesthesia/Blood Transfusion Reactions: No Reported Reaction Past Psychological History: Anxiety, Bipolar, Depression, Panic Disorder Smoking Status: Former smoker, Vaper Past Alcohol Use History: Abuse, Daily Past Drug Use History: None Reported Medications and Allergies Home Medications Medication Instructions Recorded Confirmed Type Losartan [Cozaar] 25 mg PO DAILY 03/06/23 08/27/23 History haloperidoL [Haldol] 5 mg PO HS 03/06/23 08/27/23 History OLANZapine [ZyPREXA] 10 mg PO HS 05/20/23 08/27/23 History Sertraline [Zoloft] 100 mg PO DAILY 05/20/23 08/27/23 History Aspirin EC [Ecotrin] 325 mg PO DAILY 08/27/23 08/27/23 History [place] Carbonate 300 mg PO BID 08/27/23 08/27/23 History Naltrexone HCl [Revia] 50 mg PO DAILY 08/27/23 08/27/23 History Allergies Allergy/AdvReac Type Severity Reaction Status Date / Time No Known Allergies Allergy Verified 08/27/23 12:55 Physical Exam Vitals: Vital Signs Temp Pulse Pulse Resp BP BP Pulse Ox 08/27/23 17:52 97.6 F 100 16 130/84 97 08/27/23 17:21 98.2 F 78 18 99 08/27/23 11:04 98 F 94 18 154/94 98 Intake and Output 08/27/23 08/27/23 08/28/23 14:59 22:59 06:59 Other: Weight 99.79 kg 95.708 kg
[2023-08-28 08:22] LABS: Basophils % (A) 1 %; Eosinophils # (A) 0.1 k/uL (0-0.7); Eosinophils % (A) 2 %; HCT 44.1 % (39.0-53.0); HGB 15.7 gm/dL (13.0-17.5); Lymphocytes # (A) 1.4 k/uL (1.0-4.8); Lymphocytes % (A) 20 %; MCH 33.1 pg (25.0-35.0); MCHC 35.6 g/dL (31.0-37.0); MCV 93.2 fL (80.0-100.0); Mean Platelet Volume 7.6; Monocytes # (A) 0.5 k/uL (0-1.0); Monocytes % (A) 6 %; Neutrophils # (A) 4.9 k/uL (1.3-7.7); Neutrophils % (A) 70 %; Platelet Count 269 k/uL (150-450); RBC 4.74 m/uL (4.30-5.90); RDW 14.1 % (11.5-15.5); WBC 7.1 k/uL (3.8-10.6)
[2023-08-28] MEDS: LOSARTAN 25 MG TAB PO SCH (08:53)
[2023-08-28] MEDS: NALTREXONE HCL 50 MG TAB PO SCH (08:53)
[2023-08-28] MEDS: SERTRALINE 100 MG TAB PO SCH (08:53)
[2023-08-28] MEDS: ASPIRIN 325 MG TAB PO SCH (08:53)
[2023-08-28] MEDS: NICOTINE 14MG/24HR PATCH TRANSDERM SCH (08:55)
[2023-08-28 10:02] LABS: ALT 35 U/L (4-49); AST 30 U/L (17-59); African American GFR (CKD) 86 (>60 ml/min/1.73 sqM); Albumin 4.4 g/dL (3.5-5.0); Alkaline Phosphatase 67 U/L (38-126); Anion Gap 6 mmol/L; Blood Urea Nitrogen 11 mg/dL (9-20); Calcium 9.6 mg/dL (8.4-10.2); Carbon Dioxide 29 mmol/L (22-30); Chloride 104 mmol/L (98-107); Glucose 94 mg/dL (74-99); Lithium 0.4 mmol/L; Non-African American GFR(CKD) 75 (>60 ml/min/1.73 sqM); Potassium 4.6 mmol/L (3.5-5.1); Sodium 139 mmol/L (137-145); Total Bilirubin 1.1 mg/dL (0.2-1.3); Total Protein 7.3 g/dL (6.3-8.2)
[2023-08-28] MEDS: SERTRALINE 50 MG TAB PO STA (11:57)
--- NOTE | 2023-08-28 12:47 | P.HP ---
Psychiatric H&P - . H&P Date: 08/28/23 History & Physical: Allergies Allergy/AdvReac Type Severity Reaction Status Date / Time No Known Allergies Allergy Verified 08/27/23 12:55 Vital Signs Temp 97.6 F 08/27/23 17:52 Pulse 100 08/27/23 17:52 Resp 16 08/27/23 17:52 BP 130/84 08/27/23 17:52 Pulse Ox 97 08/27/23 17:52 FiO2 Intake & Output 08/27/23 08/28/23 08/28/23 18:59 06:59 18:59 Weight 95.708 kg Laboratory Last Values WBC 7.1 k/uL (3.8-10.6) 08/28/23 07:25 RBC 4.74 m/uL (4.30-5.90) 08/28/23 07:25 Hgb 15.7 gm/dL (13.0-17.5) 08/28/23 07:25 Hct 44.1 % (39.0-53.0) 08/28/23 07:25 MCV 93.2 fL (80.0-100.0) 08/28/23 07:25 MCH 33.1 pg (25.0-35.0) 08/28/23 07:25 MCHC 35.6 g/dL (31.0-37.0) 08/28/23 07:25 RDW 14.1 % (11.5-15.5) 08/28/23 07:25 Plt Count 269 k/uL (150-450) 08/28/23 07:25 MPV 7.6 08/28/23 07:25 Neutrophils % 70 % 08/28/23 07:25 Lymphocytes % 20 % 08/28/23 07:25 Monocytes % 6 % 08/28/23 07:25 Eosinophils % 2 % 08/28/23 07:25 Basophils % 1 % 08/28/23 07:25 Neutrophils # 4.9 k/uL (1.3-7.7) 08/28/23 07:25 Lymphocytes # 1.4 k/uL (1.0-4.8) 08/28/23 07:25 Monocytes # 0.5 k/uL (0-1.0) 08/28/23 07:25 Eosinophils # 0.1 k/uL (0-0.7) 08/28/23 07:25 Basophils # 0.0 k/uL (0-0.2) 08/28/23 07:25 Urine Opiates Screen Not Detected (NotDetected) 08/27/23 11:14 Ur Oxycodone Screen Not Detected (NotDetected) 08/27/23 11:14 Urine Methadone Screen Not Detected (NotDetected) 08/27/23 11:14 Ur Barbiturates Screen Not Detected (NotDetected) 08/27/23 11:14 U Tricyclic Antidepress Not Detected (NotDetected) 08/27/23 11:14 Ur Phencyclidine Scrn Not Detected (NotDetected) 08/27/23 11:14 Ur Amphetamines Screen Not Detected (NotDetected) 08/27/23 11:14 U Methamphetamines Scrn Not Detected (NotDetected) 08/27/23 11:14 U Benzodiazepines Scrn Not Detected (NotDetected) 08/27/23 11:14 Urine Cocaine Screen Not Detected (NotDetected) 08/27/23 11:14 U Marijuana (THC) Screen Not Detected (NotDetected) 08/27/23 11:14 SARS-CoV-2 (PCR) Not Detected (Not Detectd) 08/27/23 11:14 08/28/23 08:48 IDENTIFYING DATA: Patient is a 42-year-old male. Never , no children. Works at [employer]. Lives in a hotel in [place] for the past year. HPI: Patient presented to the hospital on 08/27. As per EPS note, "Cl reports calling EMS on themselves due to SI w plan to drown. Cl clarified by stating they were going to drink alcohol until they couldn't drink anymore then " disapeer into the bubbles", indicating they would drown in their bathtub. Cl reports increased depression and anxiety over the last 3 weeks with no reason cited as to why. Cl reports symptoms of hypersomnia, loss of interest, poor hygene, increased negative thoughts, not feeling happy, and low motivation. Cl reports not using any alcohol since 04/2023 and that this would have been a relapse". Upon todays interview, patient claims that he was feeling suicidal, and had thoughts of drinking and drowning himself. States the past week has been very bad, and that it seems his medication is not working like it was working. States his job is stressing him out, because he does not like it, and that he has to walk to work, due to his car being repossessed. States he feels worthless and hopeless, and does not see a point of going on anymore. States his sleep is good, as well as his appetite. Patient denies any suicidal or homicidal ideations intent or plan. At this time patient denies any auditory or visual hallucinations. Patient denies any flight of ideas racing thoughts and increased in goal directed behavior. Patient denies using recreational drugs, cigarettes, or alcohol. PAST PSYCHIATRIC HISTORY: Patient states that he first sought psychiatric help 20 years ago. He reports prior trials with AbiStephania germain Seroquel. Last admitted in [place] last January. He reports that this is his fifth inpatient psychiatric hospitalization. He reports 3 prior hospitalizations for suicidal thoughts and 2 prior psychiatric hospitals in patient's for medication adjustments. Patient was last inpatient on this unit in April 2020.. He is currently open with [facility] for outpatient psychiatric follow-up. Currently on [place], Zoloft and Zyprexa, and Haldol. Patient denies any history of suicide attempts in the past, only self harm. PMH:As per ER note ALLERGIES: as per EMR CHEMICAL DEPENDENCY HISTORY: as per HPI FAMILY PSYCHIATRIC/SUBSTANCE USE HISTORY: He reports that his mother is schizophrenic, his sister is bipolar, and that he has a uncle and aunt on his mother's side that completed suicide. He reports that his father's side has significant alcohol use disorder. SOCIAL HISTORY: Patient was born and raised in [place], [place]. He graduated. He currently lives in [place]. He lives by himself. He currently works at [employer] and lives in a [place] motel. Never . No children. Denies legal issues. MENTAL STATUS EXAM: General Appearance: Patient appears to be stated age is alert, directable, and attempts to cooperate. Patient appears to have good hygiene and grooming. Behavior: Patient is seated without any agitated behavior. Psychomotor activity is normal. Speech: Patient's speech is fluent and nonpressured. Fairly monotone and concrete Mood/Affect: Patient reports their mood is depressed, affect is congruent and constricted. Suicidality/Homicidality: Patient denies having any homicidal ideation intent or plan. Denies any suicidal ideations intent or plan Perceptions: Patient denies any visual hallucinations and denies any auditory hallucinations Though content/process: There is no evidence of any delusional thought content and thought process is linear and goal-directed. [place]. Memory and concentration: AOX3, grossly intact for the purposes of this session. Can spell "WORLD" backwards Judgment and insight: Fair STRENGTHS/WEAKNESSES: strength is that patient is resilient. Weakness is that patient is impulsive INTELLECT: average IMPRESSIONS: Depressive disorder, unspecified r/o bipolar depression generalized Anxiety Disorder, unspecified history of alcohol use disorder PLAN: -Patient is admitted under voluntary status to MHU for stabilization of psychiatric symptoms and safety. Patient has signed adult voluntary form and medication consent and is placed in patient's chart. -Medications : Lithobid 450mg daily mood stabilization, Zoloft 150mg daily for depression/anxiety, d/c haldol, Vistaril 50mg q8 hours prn for anxiety, Zyprexa 10mg po qhs for mood stabilization/insomnia -Ativan PRN for agitation/aggression -Patient was informed of the risks, benefits and side effects of the medication and patient verbally consented to taking the medications. -Internal Medicine consult to perform medical evaluation and physical. -NRT - nicotine patch -SW on board for discharge planning. Encourage patient to participate in groups to work on coping skills. 08/28/23 12:46
[2023-08-28 21:42] LABS: Appearance,Urine Clear (Clear); Bilirubin,Urine Negative (Negative); Blood,Urine Negative (Negative); Color,Urine Colorless; Glucose,Urine (UA) Negative (Negative); Ketones,Urine Negative (Negative); Leukocyte Esterase,Urine Negative (Negative); Nitrite,Urine Negative (Negative); PH, Urine 5.5 (5.0-8.0); Protein,Urine Negative (Negative); Specific Gravity,Urine 1.015 (1.001-1.035); Urobilinogen,Urine <2.0 mg/dL (<2.0)
[2023-08-29] MEDS: LITHIUM CARBONATE ER 450 MG TABLET.ER PO SCH (08:34)
[2023-08-29] MEDS: SERTRALINE 100 MG TAB PO SCH (08:35)
--- NOTE | 2023-08-29 11:01 | P.PN ---
Progress Note - Text Progress Note Date: 08/29/23 Interval History: Patient was seen wandering the hallways and was directable and agreeable to sp nnamdi with customs entry writer in the office. Patient states that he is feeling depressed, and keeps thinking about drinking. His anxiety is a little high today. He claims his sleep was off and on last night. He states he had a hard time initiating sleep. His appetite is good. He is going to groups, and active on the unit. At this time patient denies any suicidal or homicidal ideations, intent or plan. Patient denies any auditory, visual hallucinations and denies any paranoia or delusions. Patient denies any side effects from the medications and has been compliant with meds. MENTAL STATUS EXAM: General Appearance: Patient appears to be stated age is alert, directable, and attempts to cooperate. Patient appears to have good hygiene and grooming. Behavior: Patient is seated without any agitated behavior. Speech: Patient's speech is fluent and nonpressured. Fairly monotone and concrete Mood/Affect: Patient reports their mood is depressed, affect is congruent and constricted. Suicidality/Homicidality: Patient denies having any homicidal ideation intent or plan. Denies any suicidal ideations intent or plan Perceptions: Patient denies any visual hallucinations and denies any auditory hallucinations Though content/process: There is no evidence of any delusional thought content and thought process is linear and goal-directed. [place]. Memory and concentration: AOX3, grossly intact for the purposes of this session. Judgment and insight: Fair IMPRESSIONS: Depressive disorder, unspecified r/o bipolar depression generalized Anxiety Disorder, unspecified history of alcohol use disorder PLAN: -Patient is admitted under voluntary status to MHU for stabilization of psychiatric symptoms and safety. Patient has signed adult voluntary form and medication consent and is placed in patient's chart. -Medications : Lithobid 450mg daily mood stabilization, Zoloft 150mg daily for depression/anxiety, will increase Friday to 200mg., Vistaril 50mg q8 hours prn for anxiety, increase Zyprexa 15mg po qhs for mood stabilization/insomnia -Ativan PRN for agitation/aggression -NRT - nicotine patch -SW on board for discharge planning. Encourage patient to participate in groups to work on coping skills. possible d/c early next week if patient is improving psychiatrically
[2023-08-29] MEDS: OLANZapine 7.5 MG TAB PO SCH (19:52)
[2023-08-30] MEDS: SERTRALINE 100 MG TAB PO SCH (08:24)
--- NOTE | 2023-08-30 20:58 | P.PN ---
Progress Note - Text Progress Note Date: 08/30/23 Interval history: Patient was seen playing bingo with peers during group and was directable and agreeable to speak with typewriter assembly and parts inspector. He reports feeling depressed and we discussed his Zoloft is scheduled to increase to 200 mg daily starting tomorrow morning, and he expressed understanding. At this time patient denies any suicidal or homicidal ideation, intent or plan. Denies any auditory or visual hallucinations. Patient denies any side effects from the medications and has been compliant with meds. Mental status exam: General Appearance: Patient appears to be stated age is alert, directable, and cooperative. Behavior: No agitated behavior. Patient is calm and directable Speech: Patient's speech is fluent and non-pressured. Mood/Affect: Mood is improving mildly, affect is congruent and constricted. Suicidality/Homicidality: Patient denies having any suicidal or homicidal ideation intent or plan. Perceptions: Patient denies any auditory or visual hallucinations. Though content/process: There is no evidence of any delusional thought content and thought process is linear and goal-directed. Memory and concentration: AOX3, grossly intact for the purposes of this session Judgment and insight: improving mildly Assessment/Plan: Continue with current diagnosis. Patient continues to meet criteria for inpatient psychiatric admission for symptom stabilization and safety. Increase Zoloft to 200 mg daily for depression starting tomorrow AM as scheduled. Monitor for medication compliance and for any psychotropic medication side effects. Will continue to monitor ongoing response to treatment. Encouraged participation in milieu.
[2023-08-31] MEDS: SERTRALINE 100 MG TAB PO SCH (08:46)
--- NOTE | 2023-08-31 22:14 | P.PN ---
Progress Note - Text Progress Note Date: 08/31/23 Interval history: Patient was seen isolating to his room and laying in bed in the dark, was directable and agreeable to speak with ghost writer. He appears withdrawn and reports feeling depressed still. His Zoloft increased to 200 mg daily this morning and is tolerating it without side effects so far. At this time patient denies any suicidal or homicidal ideation, intent or plan. Denies any auditory or visual hallucinations. Patient denies any side effects from the medications and has been compliant with meds. Mental status exam: General Appearance: Patient appears to be stated age is alert, directable, and cooperative. Behavior: No agitated behavior. Withdrawn, calm. Speech: Patient's speech is fluent and non-pressured. Mood/Affect: Mood is depressed, affect is congruent and constricted. Suicidality/Homicidality: Patient denies having any suicidal or homicidal id eation intent or plan. Perceptions: Patient denies any auditory or visual hallucinations. Though content/process: There is no evidence of any delusional thought content and thought process is linear. Memory and concentration: AOX3, grossly intact for the purposes of this session Judgment and insight: improving mildly Assessment/Plan: Continue with current diagnosis. Patient continues to meet criteria for inpatient psychiatric admission for symptom stabilization and safety. Zoloft increased to 200 mg daily for depression this morning. Monitor for medication compliance and for any psychotropic medication side effects. Will continue to monitor ongoing response to treatment. Encouraged participation in milieu.
[2023-09-01] MEDS: hydrOXYzine pamoate 25 MG CAP PO PRN (08:38)
--- NOTE | 2023-09-01 12:18 | P.PN ---
Subjective Progress Note Date: 09/01/23 Principal diagnosis: Adjustment disorder with depressed mood Major depressive disorder chronic with acute exacerbation Rule out pervasive persistent depressive disorder/dysthymia Alcohol use disorder chronic Personality disorder with borderline traits Patient Name: Temo Null Date of : 76 Patient Status: Inpatient Attending Provider: Kj Bridges Date: 10/21 Subjective data: The patient was seen in the hallway Patient states that he had plans to kill himself by drinking himself to Patient reports that this is his third hospitalization in the mental unit He says that he has a long history of alcohol abuse and that he plan to kill himself by drinking himself to He says that he currently lives alone and works at [employer] He states that he has been through a few detox programs in the past Mental status exam: General Appearance: Patient appears to be stated age is alert, directable, and cooperative. Behavior: No agitated behavior. Withdrawn, calm. Speech: Patient's speech is fluent and non-pressured. Mood/Affect: Mood is depressed, affect is congruent and constricted. Suicidality/Homicidality: Patient denies having any suicidal or homicidal ideation intent or plan. Perceptions: Patient denies any auditory or visual hallucinations. Though content/process: There is no evidence of any delusional thought content and thought process is linear. Memory and concentration: AOX3, grossly intact for the purposes of this session Judgment and insight: improving mildly Assessment/Plan: Continue with current diagnosis. Patient continues to meet criteria for inpatient psychiatric admission for symptom stabilization and safety. Zoloft increased to 200 mg daily for depression this morning. Monitor for medication compliance and for any psychotropic medication side eff ects. Will continue to monitor ongoing response to treatment. Encouraged participation in milieu. Bob Reina M.D. Objective - Vital Signs Vital signs: Vital Signs Temp 98.7 F 08/29/23 08:37 Pulse 91 08/31/23 08:47 Resp 18 08/29/23 08:37 BP 131/85 08/31/23 08:47 Pulse Ox 97 08/27/23 17:52 FiO2 Intake & Output 08/31/23 09/01/23 09/01/23 18:59 06:59 18:59 Weight 96.6 kg - Labs CBC & Chem 7: 08/28/23 07:25 08/28/23 07:25
--- NOTE | 2023-09-02 12:20 | P.PN ---
Subjective Progress Note Date: 09/02/23 Principal diagnosis: Adjustment disorder with depressed mood Major depressive disorder chronic with acute exacerbation Rule out pervasive persistent depressive disorder/dysthymia Alcohol use disorder chronic Personality disorder with borderline traits Patient Name: Temo Null Date of : 76 Patient Status: Inpatient Attending Provider: Kj Bridges Date: 09/02/23 Subjective data: The patient was seen in the hallway The patient reports that he has being in treatment for about a week that he's been taking his medications and he feels exactly the same He states that his medications does not seem to be working He says that he still feels depressed and unmotivated He denies any specific plans of wanting to hurt himself but admits that he still feels helpless and hopeless Mental status exam: General Appearance: Patient appears to be stated age is alert, directable, and cooperative. Behavior: No agitated behavior. Withdrawn, calm. Speech: Patient's speech is fluent and non-pressured. Mood/Affect: Mood is depressed, affect is congruent and constricted. Suicidality/Homicidality: Patient denies having any suicidal or homicidal ideation intent or plan. Perceptions: Patient denies any auditory or visual hallucinations. Though content/process: There is no evidence of any delusional thought content and thought process is linear. Memory and concentration: AOX3, grossly intact for the purposes of this session Judgment and insight: improving mildly Assessment/Plan: Continue with current diagnosis. Patient continues to meet criteria for inpatient psychiatric admission for symptom stabilization and safety. Zoloft increased to 200 mg daily for depression this morning. Discussed realistic expectations for the medications in the time lag that antidepressants take Also stressed the importance of for counseling and therapy in addition to the medication alone Also discussed the long-term effects of alcohol usage or prolonged. Of time that he is abused We'll also add Wellbutrin 100 mg twice a day and we will lower the Zyprexa to 5 mg at bedtime which may be also adding to hIS fatigue Monitor for medication compliance and for any psychotropic medication side effects. Will continue to monitor ongoing response to treatment. Encouraged participation in milieu. Bob Reina M.D. Objective - Vital Signs Vital signs: Vital Signs Temp 97.4 F L 09/02/23 05:30 Pulse 95 03/05/24 08:32 Resp 16 09/02/23 05:30 BP 139/82 09/02/23 08:32 Pulse Ox 97 08/27/23 17:52 FiO2 - Labs CBC & Chem 7: 08/28/23 07:25 08/28/23 07:25
[2023-09-02] MEDS: buPROPion 100 MG TAB PO SCH (20:36)
[2023-09-02] MEDS: OLANZapine 5 MG TAB PO SCH (20:36)
--- NOTE | 2023-09-03 09:21 | P.PN ---
Subjective Progress Note Date: 09/03/23 Principal diagnosis: Adjustment disorder with depressed mood Major depressive disorder chronic with acute exacerbation Rule out pervasive persistent depressive disorder/dysthymia Alcohol use disorder chronic Personality disorder with borderline traits Patient Name: Temo Null Date of : 76 Patient Status: Inpatient Attending Provider: Kj Bridges Date: 09/03/23 Subjective data: Patient was seen for a follow-up Patient reports that he feels slightly better and that the new medication seem to be more agreeable with him He also admits feeling less tired and fatigued since he decreased his Zyprexa to 5 mg Patient did not experience any withdrawal symptoms or any emergence of any psychotic symptoms He reports that he is feeling much more positive about the new trial of medications Mental status exam: General Appearance: Patient appears to be stated age is alert, directable, and cooperative. Behavior: No agitated behavior. Withdrawn, calm. Speech: Patient's speech is fluent and non-pressured. Mood/Affect: Mood is depressed, affect is congruent and constricted. Suicidality/Homicidality: Patient denies having any suicidal or homicidal ideation intent or plan. Perceptions: Patient denies any auditory or visual hallucinations. Though content/process: There is no evidence of any delusional thought content and thought process is linear. Memory and concentration: AOX3, grossly intact for the purposes of this session Judgment and insight: improving mildly Assessment/Plan: Continue with current diagnosis. Patient continues to meet criteria for inpatient psychiatric admission for symptom stabilization and safety. Zoloft increased to 200 mg daily for depression this morning. Discussed realistic expectations for the medications in the time lag that antidepressants take Also stressed the importance of for counseling and therapy in addition to the medication alone Also discussed the long-term effects of alcohol usage or prolonged. Of time that he is abused We'll also add Wellbutrin 100 mg twice a day and we will lower the Zyprexa to 5 mg at bedtime which may be also adding to hIS fatigue Monitor for medication compliance and for any psychotropic medication side effec ts. Will continue to monitor ongoing response to treatment. Encouraged participation in reggie. Bob Reina M.D. Objective - Vital Signs Vital signs: Vital Signs Temp 97.8 F 09/03/23 07:02 Pulse 80 09/03/23 07:02 Resp 20 09/03/23 08:52 BP 147/85 09/03/23 08:52 Pulse Ox 97 09/03/23 07:02 FiO2 - Labs CBC & Chem 7: 08/28/23 07:25 08/28/23 07:25
--- NOTE | 2023-09-04 08:34 | P.PN ---
Subjective Progress Note Date: 09/04/23 Principal diagnosis: Adjustment disorder with depressed mood Major depressive disorder chronic with acute exacerbation Rule out pervasive persistent depressive disorder/dysthymia Alcohol use disorder chronic Personality disorder with borderline traits Patient Name: Temo Null Date of : 76 Patient Status: Inpatient Attending Provider: Kj Bridges Date: 09/04/23 Subjective data: Patient was seen for a follow-up Patient was just waking up and was cooperative during this interview He states that he sees a major improvement in his mood although he states that his depression is still there However he states that he has started to feel much more positive Patient reports that he feels slightly better and that the new medication seem to be more agreeable with him He also admits feeling less tired and fatigued since he decreased his Zyprexa to 5 mg Patient did not experience any withdrawal symptoms or any emergence of any psychotic symptoms He reports that he is feeling much more positive about the new trial of medications Mental status exam: General Appearance: Patient appears to be stated age is alert, directable, and cooperative. Behavior: No agitated behavior. Withdrawn, calm. Speech: Patient's speech is fluent and non-pressured. Mood/Affect: Mood is depressed, affect is congruent and constricted. Suicidality/Homicidality: Patient denies having any suicidal or homicidal ideati on intent or plan. Perceptions: Patient denies any auditory or visual hallucinations. Though content/process: There is no evidence of any delusional thought content and thought process is linear. Memory and concentration: AOX3, grossly intact for the purposes of this session Judgment and insight: improving mildly Assessment/Plan: Continue with current diagnosis. Patient continues to meet criteria for inpatient psychiatric admission for symptom stabilization and safety. Zoloft increased to 200 mg daily for depression this morning. Discussed realistic expectations for the medications in the time lag that antidepressants take Also stressed the importance of for counseling and therapy in addition to the medication alone Also discussed the long-term effects of alcohol usage or prolonged. Of time that he is abused We'll also add Wellbutrin 100 mg twice a day and we will lower the Zyprexa to 5 mg at bedtime which may be also adding to hIS fatigue Monitor for medication compliance and for any psychotropic medication side effects. Will continue to monitor ongoing response to treatment. Encouraged participation in milieu. Bob Reina M.D. Objective - Vital Signs Vital signs: Vital Signs Temp 97.8 F 09/04/23 06:48 Pulse 79 09/04/23 08:27 Resp 16 09/04/23 06:48 BP 139/83 09/04/23 08:27 Pulse Ox 97 09/03/23 07:02 FiO2 - Labs CBC & Chem 7: 08/28/23 07:25 08/28/23 07:25
--- NOTE | 2023-09-05 09:09 | P.PN ---
Subjective Progress Note Date: 09/05/23 Principal diagnosis: Adjustment disorder with depressed mood Major depressive disorder chronic with acute exacerbation Rule out pervasive persistent depressive disorder/dysthymia Alcohol use disorder chronic Personality disorder with borderline traits Patient Name: Temo Null Date of : 76 Patient Status: Inpatient Attending Provider: Kj Bridges Date: 09/05/23 Subjective data: Patient was seen for a follow-up Patient was just waking up and was cooperative during this interview Patient continues to maintain brighter affect and more spontaneous and interactive during this time of interview Denies any suicidal or homicidal ideations He still feels that he needs to work on his self-esteem and confidence Formal and operational judgment and insight is improved Mental status exam: General Appearance: Patient appears to be stated age is alert, directable, and cooperative. Behavior: No agitated behavior. Withdrawn, calm. Speech: Patient's speech is fluent and non-pressured. Mood/Affect: Mood is depressed, affect is congruent and constricted. Suicidality/Homicidality: Patient denies having any suicidal or homicidal ideation intent or plan. Perceptions: Patient denies any auditory or visual hallucinations. Though content/process: There is no evidence of any delusional thought content and thought process is linear. Memory and concentration: AOX3, grossly intact for the purposes of this session Judgment and insight: improving mildly Assessment/Plan: Continue with current diagnosis. Patient continues to meet criteria for inpatient psychiatric admission for symptom stabilization and safety. Zoloft increased to 200 mg daily for depression this morning. Discussed realistic expectations for the medications in the time lag that antidepressants take Also stressed the importance of for counseling and therapy in addition to the medication alone Also discussed the long-term effects of alcohol usage or prolonged. Of time that he is abused We'll also add Wellbutrin 100 mg twice a day and we will lower the Zyprexa to 5 mg at bedtime which may be also adding to hIS fatigue Monitor for medication compliance and for any psychotropic medication side effects. Will continue to monitor ongoing response to treatment. Encouraged participation in milieu. Bob Reina M.D. Objective - Vital Signs Vital signs: Vital Signs Temp 98.6 F 09/05/23 06:35 Pulse 70 09/05/23 06:35 Resp 14 09/05/23 06:35 BP 114/59 03/08/24 06:35 Pulse Ox 97 09/03/23 07:02 FiO2 - Labs CBC & Chem 7: 08/28/23 07:25 08/28/23 07:25
--- NOTE | 2023-09-06 10:10 | P.PN ---
Subjective Progress Note Date: 09/06/23 Principal diagnosis: Adjustment disorder with depressed mood Major depressive disorder chronic with acute exacerbation Rule out pervasive persistent depressive disorder/dysthymia Alcohol use disorder chronic Personality disorder with borderline traits Patient Name: Temo Null Date of : 76 Patient Status: Inpatient Attending Provider: Kj Bridges Date: 09/06/23 Subjective data: Patient was seen for a follow-up Patient continues to maintain that he is feeling much more positive states that the depressions decreased intensity He states that his thinking more about the future Patient was just waking up and was cooperative during this interview Patient continues to maintain brighter affect and more spontaneous and interactive during this time of interview Denies any suicidal or homicidal ideations He still feels that he needs to work on his self-esteem and confidence Formal and operational judgment and insight is improved Mental status exam: General Appearance: Patient appears to be stated age is alert, directable, and cooperative. Behavior: No agitated behavior. Withdrawn, calm. Speech: Patient's speech is fluent and non-pressured. Mood/Affect: Mood is depressed, affect is congruent and constricted. Suicidality/Homicidality: Patient denies having any suicidal or homicidal ideat ion intent or plan. Perceptions: Patient denies any auditory or visual hallucinations. Though content/process: There is no evidence of any delusional thought content and thought process is linear. Memory and concentration: AOX3, grossly intact for the purposes of this session Judgment and insight: improving mildly Assessment/Plan: Continue with current diagnosis. Patient continues to meet criteria for inpatient psychiatric admission for symptom stabilization and safety. Zoloft increased to 200 mg daily for depression this morning. Discussed realistic expectations for the medications in the time lag that antidepressants take Also stressed the importance of for counseling and therapy in addition to the medication alone Also discussed the long-term effects of alcohol usage or prolonged. Of time that he is abused We'll also add Wellbutrin 100 mg twice a day and we will lower the Zyprexa to 5 mg at bedtime which may be also adding to hIS fatigue Monitor for medication compliance and for any psychotropic medication side effects. Will continue to monitor ongoing response to treatment. Encouraged participation in milieu. Bob Reina M.D. Objective - Vital Signs Vital signs: Vital Signs Temp 98.6 F 09/05/23 06:35 Pulse 70 09/05/23 06:35 Resp 14 09/05/23 06:35 BP 114/59 09/05/23 06:35 Pulse Ox 97 09/03/23 07:02 FiO2 - Labs CBC & Chem 7: 08/28/23 07:25 08/28/23 07:25
--- NOTE | 2023-09-07 10:46 | P.PN ---
Subjective Progress Note Date: 09/07/23 Principal diagnosis: Adjustment disorder with depressed mood Major depressive disorder chronic with acute exacerbation Rule out pervasive persistent depressive disorder/dysthymia Alcohol use disorder chronic Personality disorder with borderline traits Patient Name: Temo Null Date of : 76 Patient Status: Inpatient Attending Provider: Kj Bridges Date: 09/07/23 Subjective data: Patient was seen for a follow-up Patient continues to make positive progress Patient continues to maintain that he is feeling much more positive states that the depressions decreased intensity He states that his thinking more about the future pt was cooperative during this interview Patient continues to maintain brighter affect and more spontaneous and interactive during this time of interview Denies any suicidal or homicidal ideations He still feels that he needs to work on his self-esteem and confidence Formal and operational judgment and insight is improved Mental status exam: General Appearance: Patient appears to be stated age is alert, directable, and cooperative. Behavior: No agitated behavior. Withdrawn, calm. Speech: Patient's speech is fluent and non-pressured. Mood/Affect: Mood is depressed, affect is congruent and constricted. Suicidality/Homicidality: Patient denies having any suicidal or homicidal ideation intent or plan. Perceptions: Patient denies any auditory or visual hallucinations. Though content/process: There is no evidence of any delusional thought content and thought process is linear. Memory and concentration: AOX3, grossly intact for the purposes of this session Judgment and insight: improving mildly Assessment/Plan: Continue with current diagnosis. Patient continues to meet criteria for inpatient psychiatric admission for symptom stabilization and safety. Zoloft increased to 200 mg daily for depression this morning. Discussed realistic expectations for the medications in the time lag that antidepressants take Also stressed the importance of for counseling and therapy in addition to the medication alone Also discussed the long-term effects of alcohol usage or prolonged. Of time that he is abused Continue Wellbutrin 100 mg twice a day and continue Zyprexa to 5 mg at bedtime which may be also adding to hIS fatigue Monitor for medication compliance and for any psychotropic medication side effects. Will continue to monitor ongoing response to treatment. Encouraged participation in milieu. Bob Reina M.D. Objective - Vital Signs Vital signs: Vital Signs Temp 97.7 F 09/07/23 06:48 Pulse 72 09/07/23 06:48 Resp 16 09/07/23 06:48 BP 118/68 09/07/23 06:48 Pulse Ox 97 09/06/23 08:00 FiO2 - Labs CBC & Chem 7: 08/28/23 07:25 08/28/23 07:25
[2023-09-08 08:49] VITALS: BP 139/73; PULSE 82; RESP 18; TEMP 96.8
--- NOTE | 2023-09-08 09:26 | P.DS ---
Providers Date of admission: 08/27/23 16:41 Attending physician: Kj Bridges MD Consults: 08/27/23 17:05 Consult Physician Routine Consulting Provider: Rupinder Physician Consult Reason/Comments: H&P Do you want consulting provider notified?: Yes Primary care physician: Stated None - Discharge Diagnosis(es) (1) Anxiety disorder, unspecified Current Visit: No Status: Chronic Priority: Low (2) Major depressive disorder, recurrent, moderate Current Visit: No Status: Chronic Priority: Medium Hospital Course: Rationalization patient received a routine physical examination revealed no acut e physical issues were identified at this time that require attention Patient responded very to the multimodal treatment where the time of discharge patient was not suicidal or homicidal Side effect had improved especially after the addition of Wellbutrin lowering the dose of Zyprexa patient is willing to continue further treatment as an outpatient with the mental health services as well as polysubstance use problem with alcohol Patient was discharged in stable condition declination follow-up as directed. Risk of suicide at this time is low Active Medications Generic Name Dose Route Start Last Admin Trade Name Freq PRN Reason Stop Dose Admin Acetaminophen 650 mg 08/27/23 17:05 Acetaminophen Tab 325 Mg Tab PO Q4HR PRN Mild Pain (Scale 1 to 3) Al Hydroxide/Mg Hydroxide 30 ml 08/27/23 17:05 Mag Hydrox/Al Hydrox/Simeth 355 Ml Bottle PO Q4HR PRN GI Upset Aspirin 325 mg 08/28/23 09:00 09/08/23 08:26 Aspirin 325 Mg Tab PO 325 mg DAILY BG Administration Bupropion HCl 100 mg 09/02/23 21:00 09/08/23 08:26 Bupropion 100 Mg Tab PO 100 mg BID BG Administration Haloperidol 5 mg 08/27/23 17:09 Haloperidol 5 Mg Tab PO TID PRN Agitation or Acute Psychosis Haloperidol Lactate 5 mg 08/27/23 17:09 Haloperidol Lactate 5 Mg/Ml 1 Ml Vial IM TID PRN Agitation or Acute Psychosis Hydroxyzine Pamoate 50 mg 08/28/23 11:27 09/01/23 08:38 Hydroxyzine Pamoate 25 Mg Cap PO 50 mg Q8HR PRN Administration Anxiety [place] Carbonate 450 mg 08/29/23 09:00 09/08/23 08:26 [place] Carbonate Er 450 Mg Tablet.Er PO 450 mg DAILY BG Administration Losartan Potassium 25 mg 08/28/23 09:00 09/08/23 08:26 Losartan 25 Mg Tab PO 25 mg DAILY BG Administration Magnesium Hydroxide 2,400 mg 08/27/23 17:05 Magnesium Hydroxide 2,400 Mg/30 Ml Cup PO DAILY PRN Constipation Naltrexone HCl 50 mg 08/28/23 09:00 09/08/23 08:26 Naltrexone Hcl 50 Mg Tab PO 50 mg DAILY BG Administration Olanzapine 5 mg 09/02/23 21:00 09/07/23 20:45 Olanzapine 5 Mg Tab PO 5 mg HS BG Administration Sertraline HCl 200 mg 08/31/23 09:00 09/08/23 08:26 Sertraline 100 Mg Tab PO 200 mg DAILY BG Administration Plan - Discharge Summary Discharge Rx Participant: No New Discharge Prescriptions: No Action haloperidoL [Haldol] 5 mg PO HS Naltrexone HCl [Revia] 50 mg PO DAILY Losartan [Cozaar] 25 mg PO DAILY Sertraline [Zoloft] 100 mg PO DAILY OLANZapine [ZyPREXA] 10 mg PO HS Aspirin EC [Ecotrin] 325 mg PO DAILY [place] Carbonate 300 mg PO BID Discharge Medication List Losartan [Cozaar] 25 mg PO DAILY 03/06/23 [History] haloperidoL [Haldol] 5 mg PO HS 03/06/23 [History] OLANZapine [ZyPREXA] 10 mg PO HS 05/20/23 [History] Sertraline [Zoloft] 100 mg PO DAILY 05/20/23 [History] Aspirin EC [Ecotrin] 325 mg PO DAILY 08/27/23 [History] [place] Carbonate 300 mg PO BID 08/27/23 [History] Naltrexone HCl [Revia] 50 mg PO DAILY 08/27/23 [History] Follow up Appointment(s)/Referral(s): None,Stated [Primary Care Provider] - 1-2 days Activity/Diet/Wound Care/Special Instructions: Avoid the use of street drugs and alcohol. Take all medications as prescribed. When you are in need of refills on your medications, please contact your medical provider and/or outpatient psychiatrist/provider to have this done. Please go to your scheduled outpatient appointment for aftercare treatment. If symptoms return or become worse, call the crisis line at and/or go to the nearest emergency room for evaluation. National Suicide Hotline 744.
[2023-09-08 10:36] VITALS: BMI 30.8
== END 2023-09-08 13:36 | disposition home or self-care (01) | DRG 751 ==
LOC: EC 10:54 → 3MHU 16:41
PROVIDERS: ADMIT Psychiatry & Neurology Psychiatry; ATTEND Psychiatry & Neurology Psychiatry
DX: F33.1 Major depressive disorder, recurrent, moderate (principal); G40.909 Epilepsy, unspecified, not intractable, without status epilepticus; I10 Essential (primary) hypertension; F43.21 Adjustment disorder with depressed mood; R45.851 Suicidal ideations; Z59.01 Sheltered homelessness; Z79.82 Long term (current) use of aspirin; Z79.899 Other long term (current) drug therapy; Z87.891 Personal history of nicotine dependence; F10.139 Alcohol abuse with withdrawal, unspecified; F41.0 Panic disorder [episodic paroxysmal anxiety]; K58.1 Irritable bowel syndrome with constipation; K30 Functional dyspepsia; Z11.52 Encounter for screening for COVID-19; Z28.21 Immunization not carried out because of patient refusal
CPT/HCPCS: 80053; 80178; 80306; 81003; 82075; 83036; 84443; 85025; 87635; 99285